=== PATIENT | male | born 1965 | race Caucasian/White ===

== ENCOUNTER → 2016-11-09 | Outpatient (CLI) | payer OTHER | END | disposition home or self-care (01) | LOC: RAD 15:57 | DX: J18.9 Pneumonia, unspecified organism (principal); R00.0 Tachycardia, unspecified; R05 Cough; R06.82 Tachypnea, not elsewhere classified; R09.89 Other specified symptoms and signs involving the circulatory and respiratory systems ==

== ENCOUNTER → 2016-11-10 | Outpatient (CLI) | payer OTHER | END | disposition home or self-care (01) | LOC: RESCLI | DX: Z13.9 Encounter for screening, unspecified (principal); I12.0 Hypertensive chronic kidney disease with stage 5 chronic kidney disease or end stage renal disease; N18.6 End stage renal disease; E11.9 Type 2 diabetes mellitus without complications; E78.5 Hyperlipidemia, unspecified ==

== ENCOUNTER → 2016-11-11 | Outpatient (CLI) | payer OTHER ==
[2016-11-11 11:46] LABS: BASO % 0.2 % (0.0-1.0); EOS # 0.1 10*3/uL (0.0-0.4); EOS % 0.5 % (1.0-4.0); HEMATOCRIT 30.9 % (42.0-52.0); HEMOGLOBIN 10.2 g/dl (14.0-18.0); IG # 0.1 10*3/uL (0.0-0.1); LYMPH # 1.4 10*3/uL (1.3-4.4); LYMPH % 11.2 % (27.0-41.0); MEAN CORPUSCULAR HGB 27.7 pg (27.0-31.0); MONO # 0.7 10*3/uL (0.1-1.0); MONO % 5.1 % (3.0-9.0); NEUT # 10.6 10*3/uL (2.3-7.9); NEUT % 82.6 % (47.0-73.0); PLATELET COUNT AUTOMATED 388 10*3/uL (130-400); RED BLOOD COUNT 3.68 10*6/uL (4.50-5.90); WHITE BLOOD COUNT 12.8 10*3/uL (4.8-10.8)
[2016-11-11 12:03] LABS: HEMOGLOBIN A1c 14.2 % (4.8-5.6)
[2016-11-11 12:08] LABS: ALBUMIN 2.2 gm/dl (3.1-4.5); BILIRUBIN, TOTAL 0.4 mg/dl (0.2-1.0); POTASSIUM 2.9 mmol/L (3.5-5.1); TOTAL PROTEIN 7.5 gm/dL (6.4-8.2)
[2016-11-11 13:00] LABS: FOLIC ACID 8.61 ng/mL (>5.38)
== END | disposition home or self-care (01) ==
LOC: LAB 11:15
PROVIDERS: Student in an Organized Health Care Education/Training Program
DX: Z13.9 Encounter for screening, unspecified (principal)

== ENCOUNTER 2016-11-16 15:13 | Inpatient (IN) | payer OTHER ==
[~2016-11-16] VITALS: Ht 175.3 cm; Wt 94.3 kg
--- NOTE | ~2016-11-16 | EKG ---
[place], [place] ELECTROCARDIOGRAM REPORT NAME: KIZZY GARCIA UNIT #: [id number] ROOM: 532 DOCTOR: ECHO LEBLANC MD BIRTHDATE: [birth year] DOS: 11/16/2016 TIME: 15:59 p.m. Normal sinus rhythm with left atrial enlargement. Nonspecific T-wave abnormality. Abnormal electrocardiogram. ECHO LEBLANC MD CM:EKGRPT:ELECTROCARDIOGRAM REPORT [id number] ECHO LEBLANC MD
--- NOTE | ~2016-11-16 | PR ---
[place], [place] PROGRESS NOTE NAME: KIZZY GARCIA UNIT #: [id number] ROOM: 532 DOCTOR: ECHO LEBLANC MD BIRTHDATE: [birth year] DOS: 11/19/2016 CARDIOLOGY FOLLOWUP NOTE SUBJECTIVE: The patient was seen in the Cardiology Department just prior to his stress test today 11/19/2016. He is feeling better. His blood pressure has come under control. He denies significant lightheadedness. He states that his breathing has improved. He denies any chest pain or palpitations. PHYSICAL EXAMINATION: VITAL SIGNS: Today, his pulse is 76 and regular, blood pressure is 126/76. He weighs 94.3 kg and has a body mass index of 30.7. HEENT: Normocephalic, atraumatic. Extraocular muscles are intact. NECK: Supple. He has no jugular distention. Carotids are full. LUNGS: Respirations are unlabored. His chest is clear. HEART: Has a regular rhythm with an S4 gallop. ABDOMEN: Soft and normoactive. EXTREMITIES: Showed no edema. He does seem to be responding nicely to medical therapy and continues with his dialysis on schedule. For now, I will review the results of his stress test when they are available. Further recommendations will depend upon the results of the stress test. ECHO LEBLANC MD CM:PNTRANS [id number] ECHO LEBLANC MD 11/20/16 0124 interface
--- NOTE | ~2016-11-16 | ST ---
[place], [place] EXERCISE STRESS TEST REPORT NAME: KIZZY GARCIA UNIT #: [id number] ROOM: 532 DOCTOR: ECHO LEBLANC MD BIRTHDATE: [birth year] DOS: 11/19/2016 PHARMACOLOGIC STRESS TEST The patient underwent a pharmacologic stress test on 11/19/2016. PROCEDURE: The patient was given a rapid infusion of regadenoson 0.4 mg intravenously followed by a saline flush. He felt mildly breathless. His resting electrocardiogram showed sinus rhythm with nonspecific ST changes. No further changes occurred with the infusion. The resting heart rate of 76 tamika to 100. The resting blood pressure of 122/82 tamika to 138/90. 40 seconds after the infusion of regadenoson, he was given radionuclide intravenously. IMPRESSION: 1. Well tolerated infusion of regadenoson. 2. Radionuclide administered. Please see the separate imaging report for further details of the patient's stress test results. ECHO LEBLANC MD CM:STRESS:EXERCISE STRESS TEST REPORT [id number] 0120 ECHO LEBLANC MD
[2016-11-16 15:28] VITALS: BP 171/108
[2016-11-16] MEDS ORDERED: PRINIVIL10 MG PO (15:35)
[2016-11-16] MEDS ORDERED: 'CLONIDINE0.1 MG PO (15:35)
[2016-11-16] MEDS ORDERED: ATORVASTATIN CA40 M1 PO (15:35)
[2016-11-16] MEDS ORDERED: METOPROLOL SUCC50 M2 PO (15:35)
[2016-11-16] MEDS ORDERED: SODIUM BICARBO650 MG PO (15:36)
[2016-11-16] MEDS ORDERED: ASPIRIN FOR CHI81 MG PO (15:36)
[2016-11-16 16:14] LABS: BASO % 0.2 % (0.0-1.0); EOS # 0.1 10*3/uL (0.0-0.4); EOS % 0.8 % (1.0-4.0); HEMATOCRIT 27.4 % (42.0-52.0); IG # 0.1 10*3/uL (0.0-0.1); LYMPH # 0.9 10*3/uL (1.3-4.4); LYMPH % 10.2 % (27.0-41.0); MEAN CELL VOLUME 83.5 fl (80.0-94.0); MEAN CORPUSCULAR HGB 27.4 pg (27.0-31.0); MEAN CORPUSCULAR HGB CONC 32.8 g/dl (33.0-37.0); MEAN PLATELET VOLUME 10.3 fl (9.6-12.3); MONO # 0.5 10*3/uL (0.1-1.0); MONO % 5.5 % (3.0-9.0); NEUT # 7.4 10*3/uL (2.3-7.9); NEUT % 82.5 % (47.0-73.0); PLATELET COUNT AUTOMATED 415 10*3/uL (130-400); RED BLOOD COUNT 3.28 10*6/uL (4.50-5.90); RED CELL DISTRI WIDTH 14.2 % (0-14.5)
[2016-11-16 16:24] LABS: INTERNATIONAL NORM RATIO 1.1 (2.0-3.5); PROTHROMBIN TIME 11.4 SECONDS (9.0-12.4)
[2016-11-16 16:30] LABS: ALBUMIN 1.9 gm/dl (3.1-4.5); BILIRUBIN, TOTAL 0.3 mg/dl (0.2-1.0); MAGNESIUM 1.7 mg/dL (1.5-2.1); TOTAL PROTEIN 6.4 gm/dL (6.4-8.2)
[2016-11-16 16:32] LABS: CKMB 1.4 ng/ml (0.5-3.6)
[2016-11-16 16:41] LABS: TROPONIN I 0.19 ng/ml (<0.045)
[2016-11-16 16:42] VITALS: BP 191/106
[2016-11-16 17:00] VITALS: BP 189/100
[2016-11-16 17:21] VITALS: BP 204/103
[2016-11-16 17:45] VITALS: BP 152/90
[2016-11-16] MEDS ORDERED: CLONIDINE HCL0.1 M1 PO (18:29)
[2016-11-16] MEDS ORDERED: PHOSLYRA667 MG/51 PO (18:35)
[2016-11-16 20:00] VITALS: BP 168/102
[2016-11-17] VITALS (7 sets, daily range): BP systolic 132–214; BP diastolic 66–168
[2016-11-17 00:33] LABS: TROPONIN I 0.205 ng/ml (<0.045)
[2016-11-17 06:50] LABS: CKMB 1.2 ng/ml (0.5-3.6)
[2016-11-17 06:51] LABS: TROPONIN I 0.216 ng/ml (<0.045)
[2016-11-17 06:53] LABS: HEMATOCRIT 31.4 % (42.0-52.0); HEMOGLOBIN 9.8 g/dl (14.0-18.0); MEAN CORPUSCULAR HGB 26.8 pg (27.0-31.0); MEAN CORPUSCULAR HGB CONC 31.2 g/dl (33.0-37.0); MEAN PLATELET VOLUME 10.2 fl (9.6-12.3); RED BLOOD COUNT 3.65 10*6/uL (4.50-5.90); RED CELL DISTRI WIDTH 14.2 % (0-14.5); RETICULOCYTE % 2.73 % (0.50-2.50); WHITE BLOOD COUNT 11.9 10*3/uL (4.8-10.8)
[2016-11-17 06:56] LABS: HEMOGLOBIN A1c 14.8 % (4.8-5.6)
[2016-11-17 06:57] LABS: IRF 16.6 % (2.4-13.3); PLATELET COUNT AUTOMATED 544 10*3/uL (130-400); RET-He 27.7 pg (32.1-37.9)
[2016-11-17 07:13] LABS: INTERNATIONAL NORM RATIO 1.1 (2.0-3.5); PROTHROMBIN TIME 11.2 SECONDS (9.0-12.4)
[2016-11-17 07:14] LABS: MAGNESIUM 1.7 mg/dL (1.5-2.1); PHOSPHOROUS 3.9 mg/dL (2.5-4.9)
[2016-11-17 07:23] LABS: BILIRUBIN, TOTAL 0.3 mg/dl (0.2-1.0); THYROID STIM HORMONE (HS) 0.289 uIU/ml (0.358-4.75); TOTAL PROTEIN 7.2 gm/dL (6.4-8.2)
[2016-11-17 07:27] LABS: POTASSIUM 2.9 mmol/L (3.5-5.1)
[2016-11-17 07:33] LABS: FERRITIN 1502.3 ng/mL (22.0-322.0); VITAMIN D, 25-HYDROXY 24.3 ng/mL (30-100)
[2016-11-17 07:34] LABS: FOLIC ACID 6.83 ng/mL (>5.38)
[2016-11-17 07:59] LABS: EOSINOPHIL # 0.1 10*3/uL (0-0.4); EOSINOPHILS 1 % (1-4); LYMPHOCYTE # 2.3 10*3/uL (1.3-4.4); MONOCYTE # 0.8 10*3/uL (0.1-1.0); NEUTROPHIL # 8.7 10*3/uL (2.3-7.9); NEUTROPHILS 73 % (47-73); PLATELET SUFFICIENCY HIGH (NORMAL); TOTAL CELLS COUNTED 100 #CELLS
[2016-11-17 08:00] LABS: POLYCHROMASIA SLIGHT; ROULEAUX SLIGHT
[2016-11-17 08:02] LABS: SCHISTOCYTES FEW
[2016-11-17 12:25] LABS: CKMB 1.5 ng/ml (0.5-3.6)
[2016-11-17 12:31] LABS: TROPONIN I 0.139 ng/ml (<0.045)
[2016-11-18 06:42] LABS: BASO % 0.3 % (0.0-1.0); EOS # 0.1 10*3/uL (0.0-0.4); EOS % 1.2 % (1.0-4.0); IG # 0.1 10*3/uL (0.0-0.1); LYMPH # 1.5 10*3/uL (1.3-4.4); MEAN CELL VOLUME 86.8 fl (80.0-94.0); MEAN CORPUSCULAR HGB 26.9 pg (27.0-31.0); MEAN PLATELET VOLUME 10.1 fl (9.6-12.3); MONO # 0.8 10*3/uL (0.1-1.0); MONO % 7.6 % (3.0-9.0); NEUT # 7.9 10*3/uL (2.3-7.9); NEUT % 75.8 % (47.0-73.0); PLATELET COUNT AUTOMATED 434 10*3/uL (130-400); RED BLOOD COUNT 3.34 10*6/uL (4.50-5.90); RED CELL DISTRI WIDTH 14.4 % (0-14.5); WHITE BLOOD COUNT 10.4 10*3/uL (4.8-10.8)
[2016-11-18 07:08] LABS: ALBUMIN 1.8 gm/dl (3.1-4.5); BILIRUBIN, TOTAL 0.2 mg/dl (0.2-1.0); POTASSIUM 4.1 mmol/L (3.5-5.1); TOTAL PROTEIN 6.4 gm/dL (6.4-8.2)
[2016-11-18 08:00] VITALS: BP 176/100
[2016-11-18 08:30] VITALS: BP 154/80
[2016-11-18 12:00] VITALS: BP 142/98
[2016-11-18 16:00] VITALS: BP 160/92
[2016-11-18 20:17] VITALS: BP 150/82
[2016-11-18 23:30] VITALS: BP 158/80
[2016-11-19 07:12] LABS: BASO % 0.2 % (0.0-1.0); EOS # 0.1 10*3/uL (0.0-0.4); EOS % 0.8 % (1.0-4.0); HEMATOCRIT 30.8 % (42.0-52.0); HEMOGLOBIN 9.7 g/dl (14.0-18.0); IG # 0.2 10*3/uL (0.0-0.1); LYMPH # 1.6 10*3/uL (1.3-4.4); LYMPH % 12.8 % (27.0-41.0); MEAN CELL VOLUME 85.1 fl (80.0-94.0); MEAN CORPUSCULAR HGB 26.8 pg (27.0-31.0); MEAN CORPUSCULAR HGB CONC 31.5 g/dl (33.0-37.0); MEAN PLATELET VOLUME 10.4 fl (9.6-12.3); MONO # 0.9 10*3/uL (0.1-1.0); NEUT # 9.7 10*3/uL (2.3-7.9); NEUT % 77.8 % (47.0-73.0); PLATELET COUNT AUTOMATED 459 10*3/uL (130-400); RED BLOOD COUNT 3.62 10*6/uL (4.50-5.90); RED CELL DISTRI WIDTH 14.5 % (0-14.5); WHITE BLOOD COUNT 12.5 10*3/uL (4.8-10.8)
[2016-11-19 07:44] LABS: BILIRUBIN, TOTAL 0.3 mg/dl (0.2-1.0); POTASSIUM 4.1 mmol/L (3.5-5.1); TOTAL PROTEIN 7.3 gm/dL (6.4-8.2)
[2016-11-19 08:00] VITALS: BP 126/76
[2016-11-19 12:00] VITALS: BP 138/78
[2016-11-19 12:30] VITALS: BP 144/81
[2016-11-19 16:00] VITALS: BP 168/92
[2016-11-19] MEDS ORDERED: HUMALOG100 U/ML SC (17:56)
[2016-11-19] MEDS ORDERED: LEVEMIR10 ML SC (17:56)
[2016-11-19] MEDS ORDERED: METOPROLOL SUC100 M1 PO (17:56)
[2016-11-19] MEDS ORDERED: LISINOPRIL20 MG PO (17:56)
== END 2016-11-19 19:37 | disposition home or self-care (01) | DRG 189 ==
LOC: ED 15:13 → ICCU 17:02 → EDHOLD 17:02 → ICCU 17:14 → 5E 11-17 14:44
PROVIDERS: Internal Medicine; Internal Medicine Hospice and Palliative Medicine; Registered Nurse
PROC: 5A1D00Z (ICD-10-PCS; principal; 2016-11-18)
DX: J96.01 Acute respiratory failure with hypoxia (principal); E11.00 Type 2 diabetes mellitus with hyperosmolarity without nonketotic hyperglycemic-hyperosmolar coma (NKHHC); E43 Unspecified severe protein-calorie malnutrition; N18.6 End stage renal disease; I16.1 Hypertensive emergency; E87.1 Hypo-osmolality and hyponatremia; J90 Pleural effusion, not elsewhere classified; I13.11 Hypertensive heart and chronic kidney disease without heart failure, with stage 5 chronic kidney disease, or end stage renal disease; E11.22 Type 2 diabetes mellitus with diabetic chronic kidney disease; E55.9 Vitamin D deficiency, unspecified; E78.00 Pure hypercholesterolemia, unspecified; D47.3 Essential (hemorrhagic) thrombocythemia; D64.9 Anemia, unspecified; Z87.891 Personal history of nicotine dependence; Z68.30 Body mass index [BMI] 30.0-30.9, adult; Z79.4 Long term (current) use of insulin; Z79.82 Long term (current) use of aspirin; Z79.899 Other long term (current) drug therapy; Z99.2 Dependence on renal dialysis; Z82.49 Family history of ischemic heart disease and other diseases of the circulatory system; Z80.0 Family history of malignant neoplasm of digestive organs

== ENCOUNTER 2016-11-22 22:03 | Inpatient (IN) | payer OTHER ==
[~2016-11-22] VITALS: Ht 175.2 cm; Wt 94.1 kg
--- NOTE | ~2016-11-22 | CON ---
[place], [place] REPORT OF CONSULTATION NAME: KIZZY GARCIA UNIT #: [id number] ROOM: 505 DOCTOR: BRYAN OLMEDO MD,RONNELL BIRTHDATE: [birth year] DOS: 11/25/2016 PULMONARY CONSULTATION The patient was asked for consultation for assessment of the current empyema of the right side. The patient was discharged prior to the assessment. RONNELL ADAMS MD CM:CONSTR:REPORT OF CONSULTATION 1301 11/27/16 0516 interface
--- NOTE | ~2016-11-22 | PR ---
[place], [place] PROGRESS NOTE NAME: KIZZY GARCIA UNIT #: [id number] ROOM: 505 DOCTOR: VALDEZ LAMB MD BIRTHDATE: [birth year] DOS: 11/24/2016 CARDIOLOGY PROGRESS NOTE REASON FOR VISIT: Elevated cardiac enzymes. HISTORY OF PRESENT ILLNESS: The patient is feeling better. Denies any chest pain. He had a chest tube inserted for his pneumonia. Still some shortness of breath when he takes a deep breath and also mildly short of breath. No palpitations, no orthopnea, no dizziness. No fever or chills. REVIEW OF SYSTEMS: Review of the 8 systems were negative except as mentioned above. PHYSICAL EXAMINATION: VITAL SIGNS: Blood pressure is 128/80, pulse 89, respiratory rate is 18. GENERAL: Alert, comfortable, in no acute distress. HEENT: Pupils are round. No jaundice. Tongue is moist. NECK: Supple, no distended neck veins. No carotid bruit. CHEST: Nontender anteriorly. LUNGS: Diminished at the right base, left base has few scattered rhonchi. The patient has a chest tube on the right side. HEART: Regular rhythm, no S3. ABDOMEN: Bowel sounds normal. EXTREMITIES: Showed no edema. Distal pulses are palpable. SKIN: Warm and dry. No cyanosis, no clubbing. NEUROLOGIC: The patient is alert and oriented. No focal neurologic deficits. IMPRESSION: 1. Borderline elevation of troponin due to end-stage renal disease. 2. Pneumonia. 3. End-stage renal disease, on hemodialysis. RECOMMENDATIONS: 1. Continue current medication. 2. No further cardiac testing. 3. His stress test echo from 11/2016 was reviewed. 5. Cardiology will sign off and see as needed. The above treatment and plan was discussed with the patient and his , and all of his questions were answered. [place], [place] PROGRESS NOTE NAME: KIZZY GARCIA UNIT #: [id number] ROOM: 505 DOCTOR: VALDEZ LAMB MD BIRTHDATE: [birth year] VALDEZ LAMB MD CM:PNTRANS [id number] VALDEZ LAMB MD 11/25/16 0451 interface
--- NOTE | ~2016-11-22 | CON ---
[place], [place] REPORT OF CONSULTATION NAME: KIZZY GARCIA UNIT #: [id number] ROOM: 505 DOCTOR: VALDEZ LAMB MD BIRTHDATE: [birth year] DOS: 11/23/2016 CARDIOLOGY CONSULT REASON FOR CONSULT: Atypical chest pain and elevated troponin. HISTORY: The patient is a 51-year-old gentleman came to the Emergency Room with right flank pain. He was discharged recently from the hospital on where he did present with similar symptoms. He had this constant right flank pain, which intermittently gets worse, but this is a stabbing pain, which has been there for the past 3 weeks. He also has some cough, but no fever, no hemoptysis. He denies any chest pain, palpitations, or dizziness. No edema, no orthopnea, no nausea, vomiting, or diarrhea. No PND. No hematuria or dysuria. He did have a stress test during his last admission. REVIEW OF SYSTEMS: Review of the 8-system negative except as mentioned above. PAST MEDICAL HISTORY: 1. Hypertension. 2. End-stage renal disease, on hemodialysis. 3. Dyslipidemia. 4. Anemia. 5. Type 2 diabetes. 6. Vitamin D deficiency. 7. Obesity. 8. History of pneumonia. PAST SURGICAL HISTORY: 1. History of AV fistula for dialysis. 2. Inguinal hernia repair. SOCIAL HISTORY: The patient does not drink or use illicit drugs, does not smoke cigarettes. FAMILY HISTORY: Father at the age 77 from colon cancer and mother at the age 60s from myocardial infarction. ALLERGIES: No known drug allergies. HOME MEDICATIONS: Reviewed. PHYSICAL EXAMINATION: VITAL SIGNS: Blood pressure 120/75, pulse 71, respirations 18. Weight 94.8 kilos. BMI 30.9. GENERAL: Alert, comfortable, in no acute distress. HEENT: Pupils are round and equal. No jaundice. Tongue was moist and pharynx was clear. NECK: Supple, no distended neck veins, no carotid bruit. CHEST: Symmetrical, nontender. LUNGS: Clear to auscultation bilaterally. [place], [place] REPORT OF CONSULTATION NAME: KIZZY GARCIA UNIT #: [id number] ROOM: 505 DOCTOR: VALDEZ LAMB MD BIRTHDATE: [birth year] HEART: Regular rhythm, no S3, grade 1/6 systolic murmur. ABDOMEN: Benign, nontender. Bowel sounds normal. EXTREMITIES: Showed trace edema. Distal pulses are palpable. SKIN: Warm and dry. No cyanosis, no clubbing. NEUROLOGIC: The patient is alert, oriented. No focal neurologic deficit. RECTAL: Deferred. GENITOURINARY: Deferred. REVIEW OF THE DIAGNOSTIC TESTS: EKG shows sinus tachycardia. His initial white cell count was 23,000. Chest x-ray showed right-sided pneumonia. CBC, chemistry and cardiac enzymes reviewed. IMPRESSION: 1. Right flank pain with atypical chest pain. 2. Borderline elevation in troponin due to chronic kidney disease. 3. Pneumonia. 4. Hypertension. 5. Anemia. 6. End-stage renal disease, on dialysis. 7. Respiratory distress and hypoxemia, currently better. 8. Hyperkalemia. RECOMMENDATIONS: He denies any chest pain. EKG showed no acute ischemic changes. His CK-MB unremarkable except for borderline elevation in troponin, which is due to his chronic kidney disease and also, he had a recent stress test. Continue current medications. If he did not have one, I have to recommend getting a 2D echo for his LV function and valvular function. Continue rest of his medications. Thank you, Dr. Hidalgo for asking us to evaluate this gentleman. We will follow the case along with you. Above treatment was discussed with the patient and his and all questions were answered. [place], [place] REPORT OF CONSULTATION NAME: KIZZY GARCIA UNIT #: [id number] ROOM: [facility] DOCTOR: VALDEZ LAMB MD BIRTHDATE: [birth year] VALDEZ LAMB MD CM:CONSTR:REPORT OF CONSULTATION 44 11/24/162038 interface
--- NOTE | ~2016-11-22 | PROC NOTE ---
[place], [place] PROCEDURE NOTE NAME: KIZZY GARCIA UNIT #: [id number] ROOM: 505 DOCTOR: SAMANTHA REED BIRTHDATE: [birth year] DOS: 11/23/2016 MODIFIED BARIUM SWALLOW LOCATION: [facility], room 505, bed 2. DOCTOR: Dr. Hidalgo. RADIOLOGIST: Dr. Kelley. BACKGROUND INFORMATION: The patient is a 51-year-old male who was seen for a modified barium swallow. This test was ordered to rule out aspiration. This patient was admitted with complaints of right flank pain. He was recently discharged from this hospital last week with similar symptoms. Diagnoses include right lung pneumonia, sepsis, leukocytosis, elevated troponin, acute respiratory distress, HTN, IDDM, and end-stage renal failure with dialysis Wednesday, Wednesday, and Wednesday. The patient currently receives a renal diet. He reports no current difficulty with chewing or swallowing. For today's assessment, he was alert and able to follow all commands. He was currently having right flank pain, respirations were shallow and rapid. Oral peripheral examination revealed presence of natural teeth, which were in good condition. Oral motor skills were within normal limits in terms of strength, range of motion, and coordination. The patient was able to volitionally swallow. Volitional cough was weak due to his flank pain. METHODS AND MATERIALS USED FOR THE EXAM: The patient was positioned in the lateral plane and the exam was viewed under fluoroscopy. The patient was presented with a variety of consistencies to assess swallowing skills including applesauce mixed with barium presented in half teaspoon amounts, barium-coated cookie presented in bite size piece and thin liquid barium taken by patient via cup and straw. ORAL PHASE: Unremarkable. PHARYNGEAL PHASE: Unremarkable. ESOPHAGEAL PHASE: This phase of the swallow was not formally assessed during this examination. IMPRESSIONS AND RECOMMENDATIONS: Based upon assessment results, this 51-year-old patient presents with swallowing skills that are within normal limits. Recommend he remain on present diet. No followup therapy is recommended. Results and recommendations were shared with the patient and his nurse and they verbalized understanding. Thank you very much for this referral. Should you have any questions regarding this patient, please contact the speech pathologist at [phone]. [place], [place] PROCEDURE NOTE NAME: KIZZY GARCIA UNIT #: [id number] ROOM: [facility] DOCTOR: SAMANTHA REED BIRTHDATE: [birth year] SAMANTHA REED CM:PROCNOTE:PROCEDURE NOTE 0952 1202 SAMANTHA REED
[~2016-11-22 22:03] MED LIST: 'CLONIDINE0.1 MG PO; ASPIRIN FOR CHI81 MG PO; ATORVASTATIN CA40 M1 PO; CLONIDINE HCL0.1 M1 PO; HUMALOG100 U/ML SC; LEVEMIR10 ML SC; LISINOPRIL20 MG PO; METOPROLOL SUC100 M1 PO; METOPROLOL SUCC50 M2 PO; PHOSLYRA667 MG/51 PO; PRINIVIL10 MG PO; SODIUM BICARBO650 MG PO
[2016-11-22 22:15] VITALS: BP 147/95
[2016-11-22 22:37] LABS: HEMATOCRIT 32.2 % (42.0-52.0); HEMOGLOBIN 10.2 g/dl (14.0-18.0); MEAN CORPUSCULAR HGB 26.9 pg (27.0-31.0); MEAN CORPUSCULAR HGB CONC 31.7 g/dl (33.0-37.0); MEAN PLATELET VOLUME 10.7 fl (9.6-12.3); PLATELET COUNT AUTOMATED 518 10*3/uL (130-400); RED BLOOD COUNT 3.79 10*6/uL (4.50-5.90); WHITE BLOOD COUNT 23.7 10*3/uL (4.8-10.8)
[2016-11-22 22:47] LABS: INTERNATIONAL NORM RATIO 1.1 (2.0-3.5); PROTHROMBIN TIME 11.6 SECONDS (9.0-12.4)
[2016-11-22 22:53] LABS: BILIRUBIN, TOTAL 0.2 mg/dl (0.2-1.0); MAGNESIUM 1.7 mg/dL (1.5-2.1); TOTAL PROTEIN 7.6 gm/dL (6.4-8.2)
[2016-11-22 22:54] LABS: LYMPHOCYTE # 0.7 10*3/uL (1.3-4.4); MONOCYTE # 0.2 10*3/uL (0.1-1.0); NEUTROPHIL # 22.8 10*3/uL (2.3-7.9); NEUTROPHILS 96 % (47-73); PLATELET SUFFICIENCY HIGH (NORMAL); TOTAL CELLS COUNTED 100 #CELLS
[2016-11-22 22:57] LABS: TROPONIN I 0.074 ng/ml (<0.045)
[2016-11-22 23:44] VITALS: BP 148/76
[2016-11-23] VITALS: BP 131/88
[2016-11-23 06:48] LABS: CKMB 2.2 ng/ml (0.5-3.6)
[2016-11-23 06:51] LABS: TROPONIN I 0.284 ng/ml (<0.045)
[2016-11-23 08:00] VITALS: BP 113/73
[2016-11-23 12:00] VITALS: BP 126/75
[2016-11-23 12:06] LABS: CKMB 2.4 ng/ml (0.5-3.6)
[2016-11-23 12:10] LABS: TROPONIN I 0.224 ng/ml (<0.045)
[2016-11-23 16:00] VITALS: BP 128/69
[2016-11-23 18:18] LABS: CKMB 1.9 ng/ml (0.5-3.6)
[2016-11-23 18:23] LABS: TROPONIN I 0.165 ng/ml (<0.045)
[2016-11-23 20:00] VITALS: BP 154/82
[2016-11-23 23:48] LABS: BILIRUBIN NEGATIVE (NEGATIVE); BLOOD 1+ (NEGATIVE); CLARITY CLEAR (CLEAR); COLOR YELLOW (YELLOW); GLUCOSE 3+ (NEGATIVE); KETONE NEGATIVE (NEGATIVE); LEUKO ESTERASE NEGATIVE (NEGATIVE); NITRITE NEGATIVE (NEGATIVE); PH 7.5 (5.0-9.0); PROTEIN 3+ (NEGATIVE); SPECIFIC GRAVITY 1.015 (1.005-1.030); UROBILINOGEN 0.2 E.U./dl (0.2-1.0)
[2016-11-24] VITALS: BP 117/65
[2016-11-24 00:35] LABS: WBC 0-2 wbc/hpf (0-5)
[2016-11-24 06:34] LABS: BASO % 0.3 % (0.0-1.0); EOS # 0.1 10*3/uL (0.0-0.4); EOS % 0.5 % (1.0-4.0); HEMATOCRIT 28.8 % (42.0-52.0); HEMOGLOBIN 8.9 g/dl (14.0-18.0); IG # 0.1 10*3/uL (0.0-0.1); LYMPH # 1.4 10*3/uL (1.3-4.4); LYMPH % 9.9 % (27.0-41.0); MEAN CELL VOLUME 85.7 fl (80.0-94.0); MEAN CORPUSCULAR HGB 26.5 pg (27.0-31.0); MEAN CORPUSCULAR HGB CONC 30.9 g/dl (33.0-37.0); MEAN PLATELET VOLUME 11.1 fl (9.6-12.3); MONO # 0.9 10*3/uL (0.1-1.0); MONO % 6.3 % (3.0-9.0); NEUT # 11.4 10*3/uL (2.3-7.9); NEUT % 82.2 % (47.0-73.0); PLATELET COUNT AUTOMATED 387 10*3/uL (130-400); RED BLOOD COUNT 3.36 10*6/uL (4.50-5.90); RED CELL DISTRI WIDTH 14.9 % (0-14.5); WHITE BLOOD COUNT 13.9 10*3/uL (4.8-10.8)
[2016-11-24 06:48] LABS: ALBUMIN 1.8 gm/dl (3.1-4.5); BILIRUBIN, TOTAL 0.3 mg/dl (0.2-1.0); MAGNESIUM 1.7 mg/dL (1.5-2.1); PHOSPHOROUS 5.1 mg/dL (2.5-4.9); TOTAL PROTEIN 6.8 gm/dL (6.4-8.2)
[2016-11-24 06:54] LABS: POTASSIUM 4.6 mmol/L (3.5-5.1)
[2016-11-24 08:00] VITALS: BP 143/68
[2016-11-24 10:25] VITALS: BP 128/69
[2016-11-24 10:57] LABS: BODY FLUID CHOLESTEROL < 50 mg/dl; BODY FLUID PROTEIN 3.2 g/dl; BODY FLUID TRIGLYCERIDE 46 mg/dl
[2016-11-24 12:00] VITALS: BP 132/78
[2016-11-24 16:00] VITALS: BP 120/60
[2016-11-24 20:00] VITALS: BP 143/68
[2016-11-25] VITALS: BP 138/71
[2016-11-25 07:36] LABS: BASO % 0.4 % (0.0-1.0); EOS # 0.2 10*3/uL (0.0-0.4); EOS % 2.2 % (1.0-4.0); HEMATOCRIT 29.5 % (42.0-52.0); HEMOGLOBIN 9.1 g/dl (14.0-18.0); IG # 0.1 10*3/uL (0.0-0.1); LYMPH # 1.6 10*3/uL (1.3-4.4); LYMPH % 15.2 % (27.0-41.0); MEAN CELL VOLUME 87.3 fl (80.0-94.0); MEAN CORPUSCULAR HGB 26.9 pg (27.0-31.0); MEAN CORPUSCULAR HGB CONC 30.8 g/dl (33.0-37.0); MEAN PLATELET VOLUME 10.4 fl (9.6-12.3); MONO # 0.7 10*3/uL (0.1-1.0); MONO % 6.4 % (3.0-9.0); NEUT # 8.1 10*3/uL (2.3-7.9); PLATELET COUNT AUTOMATED 387 10*3/uL (130-400); RED BLOOD COUNT 3.38 10*6/uL (4.50-5.90); RED CELL DISTRI WIDTH 15.1 % (0-14.5); WHITE BLOOD COUNT 10.8 10*3/uL (4.8-10.8)
[2016-11-25 08:00] VITALS: BP 122/64
[2016-11-25 08:10] LABS: ALBUMIN 1.7 gm/dl (3.1-4.5); BILIRUBIN, TOTAL 0.4 mg/dl (0.2-1.0); POTASSIUM 4.3 mmol/L (3.5-5.1)
[2016-11-25 12:00] VITALS: BP 122/56
[2016-11-25 16:00] VITALS: BP 105/52
[2016-11-26 08:12] LABS: HIV 1+2 AB + HIV1 P24 AG Non Reactive (Non Reactive)
== END 2016-11-25 17:12 | disposition short-term general hospital (02) | DRG 871 ==
LOC: ED 22:03 → EDHOLD 23:16 → 5E 23:16
PROVIDERS: Emergency Medicine; Internal Medicine; Internal Medicine Hospice and Palliative Medicine; Internal Medicine Infectious Disease; Radiology Diagnostic Radiology
PROC: 5A1D00Z (ICD-10-PCS; principal; 2016-11-23)
PROC: 0W9930Z Drainage of Right Pleural Cavity with Drainage Device, Percutaneous Approach (ICD-10-PCS; 2016-11-23)
PROC: BD1BYZZ Fluoroscopy of Mouth/Oropharynx using Other Contrast (ICD-10-PCS; 2016-11-23)
DX: A41.9 Sepsis, unspecified organism (principal); E43 Unspecified severe protein-calorie malnutrition; J85.1 Abscess of lung with pneumonia; N18.6 End stage renal disease; J80 Acute respiratory distress syndrome; I12.0 Hypertensive chronic kidney disease with stage 5 chronic kidney disease or end stage renal disease; E87.5 Hyperkalemia; E78.00 Pure hypercholesterolemia, unspecified; D64.9 Anemia, unspecified; E55.9 Vitamin D deficiency, unspecified; E11.65 Type 2 diabetes mellitus with hyperglycemia; E11.22 Type 2 diabetes mellitus with diabetic chronic kidney disease; Z80.0 Family history of malignant neoplasm of digestive organs; Z82.49 Family history of ischemic heart disease and other diseases of the circulatory system; Z79.82 Long term (current) use of aspirin; Z79.4 Long term (current) use of insulin; Z79.899 Other long term (current) drug therapy; Z87.891 Personal history of nicotine dependence; Z68.30 Body mass index [BMI] 30.0-30.9, adult

== ENCOUNTER → 2016-12-22 | Outpatient (CLI) | payer OTHER | END | disposition home or self-care (01) | LOC: RAD 12:45 | DX: J98.11 Atelectasis (principal); J90 Pleural effusion, not elsewhere classified; J18.9 Pneumonia, unspecified organism; J86.9 Pyothorax without fistula; E11.9 Type 2 diabetes mellitus without complications; I10 Essential (primary) hypertension ==

== ENCOUNTER 2017-01-07 09:21 | Emergency (ER) | payer OTHER ==
[~2017-01-07] VITALS: Ht 172.7 cm; Wt 6.0 kg
[2017-01-07] MEDS ORDERED: RENVELA800 MG PO (09:31)
[2017-01-07] MEDS ORDERED: LEVEMIR10 ML SC (09:32)
[2017-01-07] MEDS ORDERED: PRINIVIL10 MG PO (09:33)
[2017-01-07] MEDS ORDERED: LEVOFLOXACIN500 MG PO (09:34)
[2017-01-07 10:16] LABS: BASO % 0.4 % (0.0-1.0); EOS # 0.2 10*3/uL (0.0-0.4); EOS % 2.7 % (1.0-4.0); HEMATOCRIT 32.2 % (42.0-52.0); HEMOGLOBIN 10.2 g/dl (14.0-18.0); LYMPH # 1.4 10*3/uL (1.3-4.4); LYMPH % 18.9 % (27.0-41.0); MEAN CELL VOLUME 90.4 fl (80.0-94.0); MEAN CORPUSCULAR HGB 28.7 pg (27.0-31.0); MEAN CORPUSCULAR HGB CONC 31.7 g/dl (33.0-37.0); MEAN PLATELET VOLUME 10.8 fl (9.6-12.3); MONO # 0.8 10*3/uL (0.1-1.0); MONO % 10.3 % (3.0-9.0); NEUT # 5.1 10*3/uL (2.3-7.9); NEUT % 67.4 % (47.0-73.0); PLATELET COUNT AUTOMATED 240 10*3/uL (130-400); RED BLOOD COUNT 3.56 10*6/uL (4.50-5.90); RED CELL DISTRI WIDTH 18.5 % (0-14.5); WHITE BLOOD COUNT 7.5 10*3/uL (4.8-10.8)
[2017-01-07 10:30] LABS: ALBUMIN 2.9 gm/dl (3.1-4.5); BILIRUBIN, TOTAL 0.5 mg/dl (0.2-1.0); POTASSIUM 5.2 mmol/L (3.5-5.1); TOTAL PROTEIN 7.6 gm/dL (6.4-8.2); URIC ACID 4.9 mg/dL (3.5-7.2)
[2017-01-07] MEDS ORDERED: HYDROCODON-ACE1 EACH PO (11:19)
== END 2017-01-07 11:29 | disposition home or self-care (01) ==
LOC: ED 09:21
PROVIDERS: Nurse Practitioner Family
DX: M79.661 Pain in right lower leg (principal); I12.0 Hypertensive chronic kidney disease with stage 5 chronic kidney disease or end stage renal disease; E11.22 Type 2 diabetes mellitus with diabetic chronic kidney disease; N18.6 End stage renal disease; Z79.4 Long term (current) use of insulin; Z79.82 Long term (current) use of aspirin; Z79.899 Other long term (current) drug therapy; Z87.891 Personal history of nicotine dependence

== ENCOUNTER 2017-01-18 06:15 | Inpatient (IN) | payer OTHER ==
[~2017-01-18] VITALS: Ht 172.7 cm; Wt 88.0 kg
[2017-01-18] VITALS (13 sets, daily range): BP systolic 118–194; BP diastolic 59–110
[~2017-01-18 06:15] MED LIST changes: +HYDROCODON-ACE1 EACH PO; +LEVOFLOXACIN500 MG PO; +RENVELA800 MG PO
[2017-01-18 06:44] LABS: BASO # 0.1 10*3/uL (0.0-0.1); BASO % 0.4 % (0.0-1.0); EOS # 0.2 10*3/uL (0.0-0.4); EOS % 1.6 % (1.0-4.0); HEMATOCRIT 32.8 % (42.0-52.0); HEMOGLOBIN 10.7 g/dl (14.0-18.0); IG # 0.1 10*3/uL (0.0-0.1); LYMPH # 2.3 10*3/uL (1.3-4.4); MEAN CELL VOLUME 89.6 fl (80.0-94.0); MEAN CORPUSCULAR HGB 29.2 pg (27.0-31.0); MEAN CORPUSCULAR HGB CONC 32.6 g/dl (33.0-37.0); MEAN PLATELET VOLUME 10.5 fl (9.6-12.3); MONO # 0.8 10*3/uL (0.1-1.0); MONO % 5.5 % (3.0-9.0); NEUT # 11.1 10*3/uL (2.3-7.9); NEUT % 75.9 % (47.0-73.0); PLATELET COUNT AUTOMATED 366 10*3/uL (130-400); RED BLOOD COUNT 3.66 10*6/uL (4.50-5.90); RED CELL DISTRI WIDTH 17.9 % (0-14.5); WHITE BLOOD COUNT 14.6 10*3/uL (4.8-10.8)
[2017-01-18 07:00] LABS: ALBUMIN 3.2 gm/dl (3.1-4.5); BILIRUBIN, TOTAL 0.5 mg/dl (0.2-1.0); MAGNESIUM 1.8 mg/dL (1.5-2.1); POTASSIUM 5.4 mmol/L (3.5-5.1); TOTAL PROTEIN 7.6 gm/dL (6.4-8.2)
[2017-01-18 07:06] LABS: TROPONIN I 1.47 ng/ml (<0.045)
[2017-01-18 11:44] LABS: CKMB 2.6 ng/ml (0.5-3.6)
[2017-01-18] MEDS ORDERED: VANCO 1 GR1 GM/250 M IV (14:38)
[2017-01-18] MEDS ORDERED: HEPARIN NS IV (14:38)
[2017-01-18] MEDS ORDERED: CLOPIDOGREL75 MG PO (14:38)
[2017-01-18] MEDS ORDERED: ZOSYN 3 GM-0.371 PD1 IV (14:38)
[2017-01-18] MEDS ORDERED: LEVOFLOXAC750 MG/150 IV (14:38)
[2017-01-18] MEDS ORDERED: [UNRECOGNIZED DRUG - OTHER] IV (14:38)
[2017-01-18 18:33] LABS: CKMB 2.1 ng/ml (0.5-3.6)
[2017-01-19] VITALS: BP 136/74
[2017-01-19 00:25] LABS: CKMB 1.4 ng/ml (0.5-3.6)
[2017-01-19 04:00] VITALS: BP 150/72
== END 2017-01-19 04:44 | disposition short-term general hospital (02) | DRG 280 ==
LOC: ED 06:15 → EDHOLD 08:07 → ICCU 08:07
PROVIDERS: Emergency Medicine Emergency Medical Services; Internal Medicine
PROC: 5A09357 Assistance with Respiratory Ventilation, Less than 24 Consecutive Hours, Continuous Positive Airway Pressure (ICD-10-PCS; principal; 2017-01-18)
PROC: 5A1D00Z (ICD-10-PCS; 2017-01-18)
DX: I21.4 Non-ST elevation (NSTEMI) myocardial infarction (principal); J96.01 Acute respiratory failure with hypoxia; I13.2 Hypertensive heart and chronic kidney disease with heart failure and with stage 5 chronic kidney disease, or end stage renal disease; N18.6 End stage renal disease; I16.1 Hypertensive emergency; I50.9 Heart failure, unspecified; D72.829 Elevated white blood cell count, unspecified; E87.6 Hypokalemia; E11.65 Type 2 diabetes mellitus with hyperglycemia; E78.00 Pure hypercholesterolemia, unspecified; E11.22 Type 2 diabetes mellitus with diabetic chronic kidney disease; Z99.2 Dependence on renal dialysis; Z72.89 Other problems related to lifestyle; Z80.0 Family history of malignant neoplasm of digestive organs; Z82.49 Family history of ischemic heart disease and other diseases of the circulatory system; Z87.891 Personal history of nicotine dependence; Z90.2 Acquired absence of lung [part of]; Z79.82 Long term (current) use of aspirin; Z79.4 Long term (current) use of insulin; Z79.899 Other long term (current) drug therapy; Z87.01 Personal history of pneumonia (recurrent)

== ENCOUNTER 2017-04-08 10:26 | Emergency (ER) | payer OTHER ==
[~2017-04-08] VITALS: Ht 172.7 cm; Wt 90.7 kg
[~2017-04-08 10:26] MED LIST changes: +CLOPIDOGREL75 MG PO; +HEPARIN NS IV; +LEVOFLOXAC750 MG/150 IV; +VANCO 1 GR1 GM/250 M IV; +ZOSYN 3 GM-0.371 PD1 IV; +[UNRECOGNIZED DRUG - OTHER] IV
[2017-04-08 10:58] LABS: BASO # 0.1 10*3/uL (0.0-0.1); BASO % 0.6 % (0.0-1.0); EOS # 0.1 10*3/uL (0.0-0.4); EOS % 1.3 % (1.0-4.0); HEMATOCRIT 33.5 % (42.0-52.0); HEMOGLOBIN 11.5 g/dl (14.0-18.0); LYMPH # 1.6 10*3/uL (1.3-4.4); MEAN CELL VOLUME 87.9 fl (80.0-94.0); MEAN CORPUSCULAR HGB 30.2 pg (27.0-31.0); MEAN CORPUSCULAR HGB CONC 34.3 g/dl (33.0-37.0); MEAN PLATELET VOLUME 10.2 fl (9.6-12.3); MONO # 0.5 10*3/uL (0.1-1.0); MONO % 6.1 % (3.0-9.0); NEUT # 6.1 10*3/uL (2.3-7.9); NEUT % 72.8 % (47.0-73.0); PLATELET COUNT AUTOMATED 240 10*3/uL (130-400); RED BLOOD COUNT 3.81 10*6/uL (4.50-5.90); RED CELL DISTRI WIDTH 14.4 % (0-14.5); WHITE BLOOD COUNT 8.4 10*3/uL (4.8-10.8)
[2017-04-08 11:09] LABS: ACT PARTIAL THROMBO TIME 20.7 SECONDS (20.8-31.5); INTERNATIONAL NORM RATIO 1.1 (2.0-3.5)
[2017-04-08 11:15] LABS: ALBUMIN 3.5 gm/dl (3.1-4.5); CREATININE 6.9 mg/dL (0.70-1.30); POTASSIUM 4.1 mmol/L (3.5-5.1); TOTAL PROTEIN 7.9 gm/dL (6.4-8.2)
[2017-04-08 11:22] LABS: TROPONIN I 0.58 ng/ml (<0.045)
== END 2017-04-08 15:14 | disposition left against medical advice (07) ==
LOC: ED 10:26
PROVIDERS: Family Medicine Adult Medicine
DX: R07.89 Other chest pain (principal); R05 Cough; M54.6 Pain in thoracic spine; E78.00 Pure hypercholesterolemia, unspecified; E11.22 Type 2 diabetes mellitus with diabetic chronic kidney disease; I12.0 Hypertensive chronic kidney disease with stage 5 chronic kidney disease or end stage renal disease; N18.6 End stage renal disease; Z99.2 Dependence on renal dialysis; Z79.82 Long term (current) use of aspirin; Z79.899 Other long term (current) drug therapy; Z79.4 Long term (current) use of insulin; Z87.891 Personal history of nicotine dependence

== ENCOUNTER 2017-06-08 10:02 | Emergency (ER) | payer OTHER ==
[~2017-06-08] VITALS: Ht 172.7 cm; Wt 90.7 kg
[2017-06-08] MEDS ORDERED: CEPHALEXIN500 M1 PO (12:50)
== END 2017-06-08 13:32 | disposition home or self-care (01) ==
LOC: ED 10:02
DX: J01.90 Acute sinusitis, unspecified (principal); F17.200 Nicotine dependence, unspecified, uncomplicated; Z79.82 Long term (current) use of aspirin

== ENCOUNTER 2017-07-25 13:14 | Inpatient (IN) | payer OTHER ==
[2017-07-25] VITALS (7 sets, daily range): BP systolic 100–145; BP diastolic 59–89
[~2017-07-25] VITALS: Ht 177.8 cm; Wt 94.5 kg
[~2017-07-25 13:14] MED LIST changes: +CEPHALEXIN500 M1 PO; +LEVEMIR100 UNIT/1 SQ
[2017-07-25 13:45] LABS: BASO # 0.1 10*3/uL (0.0-0.1); BASO % 0.5 % (0.0-1.0); EOS # 0.2 10*3/uL (0.0-0.4); EOS % 1.5 % (1.0-4.0); HEMOGLOBIN 12.2 g/dl (14.0-18.0); LYMPH # 2.3 10*3/uL (1.3-4.4); LYMPH % 18.9 % (27.0-41.0); MEAN CELL VOLUME 91.1 fl (80.0-94.0); MEAN CORPUSCULAR HGB 30.9 pg (27.0-31.0); MEAN CORPUSCULAR HGB CONC 33.9 g/dl (33.0-37.0); MEAN PLATELET VOLUME 9.9 fl (9.6-12.3); MONO # 0.8 10*3/uL (0.1-1.0); MONO % 6.7 % (3.0-9.0); NEUT # 8.7 10*3/uL (2.3-7.9); NEUT % 72.2 % (47.0-73.0); PLATELET COUNT AUTOMATED 283 10*3/uL (130-400); RED BLOOD COUNT 3.95 10*6/uL (4.50-5.90); RED CELL DISTRI WIDTH 14.3 % (0-14.5); WHITE BLOOD COUNT 12.1 10*3/uL (4.8-10.8)
[2017-07-25 14:01] LABS: ALBUMIN 3.7 gm/dl (3.1-4.5); CREATININE 10.3 mg/dL (0.70-1.30); PHOSPHOROUS 5.1 mg/dL (2.5-4.9); POTASSIUM 5.7 mmol/L (3.5-5.1); TOTAL PROTEIN 8.2 gm/dL (6.4-8.2)
[2017-07-25] MEDS ORDERED: NORVASC5 MG PO (15:48)
[2017-07-25] MEDS ORDERED: ISOSORBIDE MON120 MG PO (16:18)
[2017-07-25] MEDS ORDERED: TOPROL XL50 M1 PO (16:21)
[2017-07-25] MEDS ORDERED: BUMETANIDE2 MG PO (16:23)
[2017-07-25 16:51] LABS: CREATININE 10.6 mg/dL (0.70-1.30)
[2017-07-25 16:58] LABS: POTASSIUM 4.1 mmol/L (3.5-5.1)
[2017-07-25 20:31] LABS: CREATININE 10.7 mg/dL (0.70-1.30); POTASSIUM 4.1 mmol/L (3.5-5.1)
[2017-07-26] VITALS: BP 112/50
[2017-07-26 06:56] LABS: BASO # 0.1 10*3/uL (0.0-0.1); BASO % 0.5 % (0.0-1.0); EOS # 0.2 10*3/uL (0.0-0.4); EOS % 2.1 % (1.0-4.0); HEMATOCRIT 35.2 % (42.0-52.0); HEMOGLOBIN 11.8 g/dl (14.0-18.0); LYMPH # 1.6 10*3/uL (1.3-4.4); LYMPH % 15.9 % (27.0-41.0); MEAN CORPUSCULAR HGB 30.5 pg (27.0-31.0); MEAN CORPUSCULAR HGB CONC 33.5 g/dl (33.0-37.0); MONO # 0.6 10*3/uL (0.1-1.0); MONO % 5.9 % (3.0-9.0); NEUT # 7.6 10*3/uL (2.3-7.9); NEUT % 75.2 % (47.0-73.0); PLATELET COUNT AUTOMATED 253 10*3/uL (130-400); RED BLOOD COUNT 3.87 10*6/uL (4.50-5.90); RED CELL DISTRI WIDTH 14.1 % (0-14.5); WHITE BLOOD COUNT 10.1 10*3/uL (4.8-10.8)
[2017-07-26 07:28] LABS: ALBUMIN 3.5 gm/dl (3.1-4.5); CREATININE 11.4 mg/dL (0.70-1.30); FREE T4 0.97 ng/dl (0.76-1.46); PHOSPHOROUS 5.7 mg/dL (2.5-4.9)
[2017-07-26 07:29] LABS: INTERNATIONAL NORM RATIO 1.1 (2.0-3.5)
[2017-07-26 07:39] LABS: THYROID STIM HORMONE (HS) 0.442 uIU/ml (0.358-4.75)
[2017-07-26 07:48] LABS: POTASSIUM 5.3 mmol/L (3.5-5.1)
[2017-07-26 08:19] LABS: VITAMIN D, 25-HYDROXY 10.3 ng/mL (30-100)
[2017-07-26 08:20] LABS: PTH INTACT 625.3 pg/mL (14.0-72.0)
[2017-07-26 12:39] VITALS: BP 118/71
[2017-07-26 16:00] VITALS: BP 100/58
[2017-07-26 20:00] VITALS: BP 105/58
[2017-07-27] VITALS: BP 102/54
[2017-07-27 08:00] VITALS: BP 95/44
[2017-07-27 08:22] LABS: ALBUMIN 3.9 gm/dl (3.1-4.5); CREATININE 8.8 mg/dL (0.70-1.30); PHOSPHOROUS 6.1 mg/dL (2.5-4.9); TOTAL PROTEIN 8.6 gm/dL (6.4-8.2)
[2017-07-27 08:26] LABS: POTASSIUM 4.3 mmol/L (3.5-5.1)
[2017-07-27 08:28] LABS: BASO # 0.1 10*3/uL (0.0-0.1); BASO % 0.7 % (0.0-1.0); EOS # 0.2 10*3/uL (0.0-0.4); HEMATOCRIT 36.8 % (42.0-52.0); HEMOGLOBIN 12.6 g/dl (14.0-18.0); LYMPH # 2.1 10*3/uL (1.3-4.4); LYMPH % 21.4 % (27.0-41.0); MEAN CELL VOLUME 91.3 fl (80.0-94.0); MEAN CORPUSCULAR HGB 31.3 pg (27.0-31.0); MEAN CORPUSCULAR HGB CONC 34.2 g/dl (33.0-37.0); MEAN PLATELET VOLUME 10.4 fl (9.6-12.3); MONO # 0.7 10*3/uL (0.1-1.0); MONO % 7.5 % (3.0-9.0); NEUT # 6.5 10*3/uL (2.3-7.9); RED BLOOD COUNT 4.03 10*6/uL (4.50-5.90); RED CELL DISTRI WIDTH 14.4 % (0-14.5); WHITE BLOOD COUNT 9.6 10*3/uL (4.8-10.8)
[2017-07-27 08:40] LABS: PLATELET COUNT AUTOMATED 338 10*3/uL (130-400)
[2017-07-27 12:00] VITALS: BP 100/56
[2017-07-27] MEDS ORDERED: TOPROL XL50 M1 PO (14:00)
[2017-07-27] MEDS ORDERED: ATORVASTATIN CA80 M1 PO (14:00)
[2017-07-27] MEDS ORDERED: NATURE'S BLEND500 M5 PO (14:08)
[2017-07-27] MEDS ORDERED: CALCIUM ACETAT667 M2 PO (14:08)
== END 2017-07-27 15:58 | disposition home or self-care (01) | DRG 640 ==
LOC: ED 13:14 → 4E 14:12 → EDHOLD 14:12 → ICCU 14:41 → 4E 19:13
PROVIDERS: Emergency Medicine; Family Medicine; Internal Medicine Nephrology; Student in an Organized Health Care Education/Training Program
PROC: 5A1D70Z Performance of Urinary Filtration, Intermittent, Less than 6 Hours Per Day (ICD-10-PCS; principal; 2017-07-26)
DX: E83.51 Hypocalcemia (principal); N18.6 End stage renal disease; I13.2 Hypertensive heart and chronic kidney disease with heart failure and with stage 5 chronic kidney disease, or end stage renal disease; I47.2 Ventricular tachycardia; E87.1 Hypo-osmolality and hyponatremia; I50.42 Chronic combined systolic (congestive) and diastolic (congestive) heart failure; E87.5 Hyperkalemia; E11.22 Type 2 diabetes mellitus with diabetic chronic kidney disease; E11.65 Type 2 diabetes mellitus with hyperglycemia; Z99.2 Dependence on renal dialysis; E78.00 Pure hypercholesterolemia, unspecified; E83.39 Other disorders of phosphorus metabolism; D72.829 Elevated white blood cell count, unspecified; R79.82 Elevated C-reactive protein (CRP); D64.9 Anemia, unspecified; R20.2 Paresthesia of skin; E87.8 Other disorders of electrolyte and fluid balance, not elsewhere classified; D72.9 Disorder of white blood cells, unspecified; D72.810 Lymphocytopenia; I25.10 Atherosclerotic heart disease of native coronary artery without angina pectoris; Z80.0 Family history of malignant neoplasm of digestive organs; Z82.49 Family history of ischemic heart disease and other diseases of the circulatory system; Z79.82 Long term (current) use of aspirin; Z79.4 Long term (current) use of insulin; Z79.899 Other long term (current) drug therapy; I35.1 Nonrheumatic aortic (valve) insufficiency

== ENCOUNTER 2017-08-08 08:41 | Inpatient (IN) | payer OTHER ==
[~2017-08-08] VITALS: Ht 175.2 cm; Wt 95.3 kg
[2017-08-08] VITALS (9 sets, daily range): BP systolic 115–152; BP diastolic 69–97
--- NOTE | ~2017-08-08 | CON ---
[place], [place] REPORT OF CONSULTATION NAME: KIZZY GARCIA UNIT #: [id number] ROOM: 415 DOCTOR: JV CHAMBERS MD BIRTHDATE: [birth year] DOS: 08/08/2017 REASON FOR CONSULTATION: End-stage renal disease. HISTORY OF PRESENT ILLNESS: The patient is a 51-year-old gentleman known to our service for his history of end-stage renal disease. He has been undergoing dialysis on Wednesday, Wednesday and Wednesday schedule at [facility]. He has a history of diabetes, hypertension as a cause for his renal failure. His is at the bedside. He was recently hospitalized with numbness, tingling and reported to have V-Tach. Due to abnormal calcium levels possibly, he also has hyperkalemia, which should improve at that time earlier this month. He has a left arm AV fistula, which has been cannulated now for the last couple of months without significant issues. He began to get dyspneic last night and could not lay down to breathe. His orthopnea worsened. He came to the hospital and he developed some sweats, but no significant chest pains or anginal symptoms. He has been seen by Cardiology in the past and has had mild elevations in troponins. He states that the thing that helped his shortness of breath the most was breathing treatments that were given in the Emergency Department. He is lying down comfortably with no acute distress and on room air at this time saturating 95%. His blood pressures tend to run somewhat on the high side, but they have been well controlled lately in the 130s-150s over 60s-90s. He is afebrile. No sick contacts reported. REVIEW OF SYSTEMS: All systems reviewed and negative except for as per HPI. PAST MEDICAL HISTORY: As above as well as hyperlipidemia, vitamin D deficiency, hypocalcemia, partial lobectomy AV fistula creation and inguinal hernia repair. SOCIAL HISTORY: Past smoking. No toxic habits reported. Does not cook with a lot of salt, per . FAMILY HISTORY: Negative for known renal failure. ALLERGIES: No known drug allergies. HOME MEDICATIONS: Reviewed from the chart. PHYSICAL EXAMINATION: Blood pressures are 140s/80s, afebrile, heart rates in the 90s, respiratory rate 18 and pulse ox 95% on room air. GENERAL: He is awake, alert and oriented, no acute distress, lying comfortably in bed supine with 1 pillow. His is at the bedside. He has been resting comfortably because he had a one night in the ER. He makes some urine and was given Lasix earlier. He is due to get his Bumex later that he takes at home. HEAD AND NECK: Sclerae icteric. Oropharynx is clear. Mucous membranes are moist. NECK: No JVD or lymphadenopathy. No neck stiffness. LUNGS: Clear bilaterally without audible rales or wheeze. CARDIOVASCULAR: Regular rate. No audible rub. No palpable lift or heave. ABDOMEN: Soft, nontender. No rebound. No guarding. No hepatosplenomegaly. EXTREMITIES: Without cyanosis. Trace to 1+ edema is present and stable for [place], [place] REPORT OF CONSULTATION NAME: KIZZY GARCIA UNIT #: [id number] ROOM: 415 DOCTOR: JV CHAMBERS MD BIRTHDATE: [birth year] him. Left arm AV fistula has a positive thrill and bruit. SKIN: Without diffuse rashes or breakdowns. LABORATORIES AND DIAGNOSTICS: White blood cell count 10.3, hemoglobin 11.7 and platelets 249. INR 1.0. Sodium 133, potassium 5.0, chloride 94 ____. BUN and creatinine ____, glucose 340, lactic acid 1.7, calcium 8.7, troponin 0.273, magnesium 2.0. LFTs are otherwise unremarkable. Lipase 426. Troponin 0.273. Chest radiograph personally reviewed, trace vascular congestion perhaps with mild cardiomegaly, but in an AP film. ASSESSMENT AND PLAN: End-stage renal disease, on hemodialysis. We will continue Wednesday, Wednesday and Wednesday. He is comfortable, does not require urgent acute hemodialysis at this time. Volume and hypertension blood pressures are acceptably controlled. Continue his home medications and continue gentle diuresis. He can tolerate a lot more if needed in the short term, but I counseled him on strict fluid restriction and counseled his as well. He states that he is already following a sodium restricted diet. Further cardiac workup per the primary service as needed for the troponinemia acceptable. Continue outpatient erythropoietin stimulating agents and iron, metabolic bone disease, history of hypocalcemia now improved. Continue to follow with vitamin D receptor agonist. Thank you very much for the kind of consultation. We will continue to follow with you. Dialysis has been made aware of this patient. JV CHAMBERS MD CM:CONSTR:REPORT OF CONSULTATION 1406 08/08/17 2138 interface
[~2017-08-08 08:41] MED LIST changes: +ATORVASTATIN CA80 M1 PO; +BUMETANIDE2 MG PO; +CALCIUM ACETAT667 M2 PO; +ISOSORBIDE MON120 MG PO; +NATURE'S BLEND500 M5 PO; +NORVASC5 MG PO; +TOPROL XL50 M1 PO
[2017-08-08 09:07] LABS: BASO # 0.1 10*3/uL (0.0-0.1); BASO % 0.6 % (0.0-1.0); EOS # 0.1 10*3/uL (0.0-0.4); EOS % 1.1 % (1.0-4.0); HEMATOCRIT 33.8 % (42.0-52.0); HEMOGLOBIN 11.7 g/dl (14.0-18.0); LYMPH # 1.3 10*3/uL (1.3-4.4); LYMPH % 12.6 % (27.0-41.0); MEAN CELL VOLUME 88.3 fl (80.0-94.0); MEAN CORPUSCULAR HGB 30.5 pg (27.0-31.0); MEAN CORPUSCULAR HGB CONC 34.6 g/dl (33.0-37.0); MEAN PLATELET VOLUME 10.1 fl (9.6-12.3); MONO # 0.5 10*3/uL (0.1-1.0); NEUT # 8.3 10*3/uL (2.3-7.9); NEUT % 80.3 % (47.0-73.0); PLATELET COUNT AUTOMATED 249 10*3/uL (130-400); RED BLOOD COUNT 3.83 10*6/uL (4.50-5.90); RED CELL DISTRI WIDTH 13.8 % (0-14.5); WHITE BLOOD COUNT 10.3 10*3/uL (4.8-10.8)
[2017-08-08 09:18] LABS: ACT PARTIAL THROMBO TIME 21.3 SECONDS (20.8-31.5)
[2017-08-08 09:22] LABS: ALBUMIN 3.6 gm/dl (3.1-4.5); CREATININE 9.74 mg/dL (0.70-1.30); TOTAL PROTEIN 7.9 gm/dL (6.4-8.2)
[2017-08-08 09:25] LABS: TROPONIN I 0.273 ng/ml (<0.045)
[2017-08-09] VITALS: BP 135/74
[2017-08-09 06:37] LABS: ALBUMIN 3.4 gm/dl (3.1-4.5); CREATININE 11.2 mg/dL (0.70-1.30); PHOSPHOROUS 4.2 mg/dL (2.5-4.9); POTASSIUM 4.3 mmol/L (3.5-5.1); TOTAL PROTEIN 7.2 gm/dL (6.4-8.2)
[2017-08-09 06:51] LABS: BASO # 0.1 10*3/uL (0.0-0.1); BASO % 0.8 % (0.0-1.0); EOS # 0.1 10*3/uL (0.0-0.4); EOS % 1.6 % (1.0-4.0); HEMATOCRIT 28.9 % (42.0-52.0); LYMPH # 1.4 10*3/uL (1.3-4.4); LYMPH % 18.4 % (27.0-41.0); MEAN CELL VOLUME 89.2 fl (80.0-94.0); MEAN CORPUSCULAR HGB 30.9 pg (27.0-31.0); MEAN CORPUSCULAR HGB CONC 34.6 g/dl (33.0-37.0); MEAN PLATELET VOLUME 10.7 fl (9.6-12.3); MONO # 0.5 10*3/uL (0.1-1.0); MONO % 6.6 % (3.0-9.0); NEUT # 5.4 10*3/uL (2.3-7.9); NEUT % 72.2 % (47.0-73.0); PLATELET COUNT AUTOMATED 238 10*3/uL (130-400); RED BLOOD COUNT 3.24 10*6/uL (4.50-5.90); RED CELL DISTRI WIDTH 13.7 % (0-14.5); WHITE BLOOD COUNT 7.5 10*3/uL (4.8-10.8)
[2017-08-09 12:00] VITALS: BP 145/75
[2017-08-09 16:00] VITALS: BP 112/59
[2017-08-09 20:00] VITALS: BP 111/63
[2017-08-10 05:09] LABS: ALBUMIN 3.8 gm/dl (3.1-4.5); CREATININE 8.49 mg/dL (0.70-1.30); PHOSPHOROUS 4.4 mg/dL (2.5-4.9); POTASSIUM 4.1 mmol/L (3.5-5.1)
[2017-08-10 08:00] VITALS: BP 106/79
[2017-08-10 12:00] VITALS: BP 105/51
[2017-08-10] MEDS ORDERED: CALCIUM CARBON200 MG PO (13:34)
[2017-08-10] MEDS ORDERED: CALCIUM ACETAT667 MG PO (13:34)
== END 2017-08-10 14:02 | disposition home or self-care (01) | DRG 291 ==
LOC: ED 08:41 → EDHOLD 10:25 → 4E 10:25
PROVIDERS: Emergency Medicine; Internal Medicine; Internal Medicine Nephrology
PROC: 5A1D70Z Performance of Urinary Filtration, Intermittent, Less than 6 Hours Per Day (ICD-10-PCS; principal; 2017-08-09)
DX: I13.2 Hypertensive heart and chronic kidney disease with heart failure and with stage 5 chronic kidney disease, or end stage renal disease (principal); N18.6 End stage renal disease; E11.22 Type 2 diabetes mellitus with diabetic chronic kidney disease; E87.8 Other disorders of electrolyte and fluid balance, not elsewhere classified; I50.32 Chronic diastolic (congestive) heart failure; E11.65 Type 2 diabetes mellitus with hyperglycemia; D72.9 Disorder of white blood cells, unspecified; E78.00 Pure hypercholesterolemia, unspecified; E83.51 Hypocalcemia; D64.9 Anemia, unspecified; D72.810 Lymphocytopenia; E66.09 Other obesity due to excess calories; Z79.4 Long term (current) use of insulin; Z99.2 Dependence on renal dialysis; Z87.891 Personal history of nicotine dependence; Z82.49 Family history of ischemic heart disease and other diseases of the circulatory system; Z80.0 Family history of malignant neoplasm of digestive organs; Z79.82 Long term (current) use of aspirin; Z79.899 Other long term (current) drug therapy; Z68.31 Body mass index [BMI] 31.0-31.9, adult; I25.2 Old myocardial infarction

== ENCOUNTER 2017-08-15 07:06 | Emergency (ER) | payer OTHER ==
[~2017-08-15] VITALS: Ht 172.7 cm; Wt 97.5 kg
[~2017-08-15 07:06] MED LIST changes: +CALCIUM ACETAT667 MG PO; +CALCIUM CARBON200 MG PO
[2017-08-15 07:38] LABS: BASO # 0.1 10*3/uL (0.0-0.1); BASO % 0.6 % (0.0-1.0); EOS # 0.2 10*3/uL (0.0-0.4); EOS % 1.7 % (1.0-4.0); HEMATOCRIT 32.3 % (42.0-52.0); HEMOGLOBIN 11.1 g/dl (14.0-18.0); LYMPH # 1.6 10*3/uL (1.3-4.4); LYMPH % 16.9 % (27.0-41.0); MEAN CELL VOLUME 90.7 fl (80.0-94.0); MEAN CORPUSCULAR HGB 31.2 pg (27.0-31.0); MEAN CORPUSCULAR HGB CONC 34.4 g/dl (33.0-37.0); MEAN PLATELET VOLUME 10.4 fl (9.6-12.3); MONO # 0.5 10*3/uL (0.1-1.0); MONO % 5.6 % (3.0-9.0); NEUT # 6.9 10*3/uL (2.3-7.9); NEUT % 74.9 % (47.0-73.0); PLATELET COUNT AUTOMATED 240 10*3/uL (130-400); RED BLOOD COUNT 3.56 10*6/uL (4.50-5.90); RED CELL DISTRI WIDTH 14.1 % (0-14.5); WHITE BLOOD COUNT 9.3 10*3/uL (4.8-10.8)
[2017-08-15 07:46] LABS: ACT PARTIAL THROMBO TIME 20.9 SECONDS (20.8-31.5)
[2017-08-15 07:54] LABS: ALBUMIN 3.5 gm/dl (3.1-4.5); CREATININE 9.47 mg/dL (0.70-1.30); POTASSIUM 5.7 mmol/L (3.5-5.1); TOTAL PROTEIN 7.6 gm/dL (6.4-8.2)
[2017-08-15 07:59] LABS: TROPONIN I 0.536 ng/ml (<0.045)
== END 2017-08-15 08:54 | disposition home or self-care (01) ==
LOC: ED 07:06
PROVIDERS: Student in an Organized Health Care Education/Training Program
DX: R06.02 Shortness of breath (principal); F17.200 Nicotine dependence, unspecified, uncomplicated; I13.2 Hypertensive heart and chronic kidney disease with heart failure and with stage 5 chronic kidney disease, or end stage renal disease; E11.22 Type 2 diabetes mellitus with diabetic chronic kidney disease; N18.6 End stage renal disease; I50.9 Heart failure, unspecified; E11.65 Type 2 diabetes mellitus with hyperglycemia; E66.9 Obesity, unspecified; Z99.2 Dependence on renal dialysis; Z79.4 Long term (current) use of insulin; Z79.82 Long term (current) use of aspirin; Z79.899 Other long term (current) drug therapy

== ENCOUNTER → 2017-10-13 | Outpatient (CLI) | payer OTHER ==
[2017-10-13 11:50] LABS: CHOLESTEROL 121 mg/dL (<200); CPK 68 U/L (39-308); HDL CHOLESTEROL 38 mg/dl (40-60); LDL CHOLESTEROL 7 mg/dL (9-159); TRIGLYCERIDES 379 mg/dl (<150); VLDL CHOLESTEROL 76 mg/dL (6-40)
== END | disposition home or self-care (01) ==
LOC: LAB 10:52
PROVIDERS: Family Medicine
DX: I25.10 Atherosclerotic heart disease of native coronary artery without angina pectoris (principal); E11.22 Type 2 diabetes mellitus with diabetic chronic kidney disease

== ENCOUNTER 2018-01-23 14:38 | Emergency (ER) | payer OTHER ==
[~2018-01-23] VITALS: Ht 172.7 cm; Wt 99.8 kg
--- NOTE | ~2018-01-23 | EKG ---
[place], [place] ELECTROCARDIOGRAM REPORT NAME: KIZZY GARCIA UNIT #: [id number] ROOM: DOCTOR: EPIPHANY DRAFT REPORT BIRTHDATE: [birth year] [facility] Test Date: 2018-01-23 Test Time: 15:04:07 Pat Name: KIZZY GARCIA Department: Room: Gender: M [employer] Solutions Architect: : 1965 Requested By: YOJANA TIDWELL PA-C Order Number: [id number] Reading MD: Saúl Islas MD Measurements Intervals [place] Rate: 73 P: 22 WV: 161 QRS: 67 QRSD: 110 T: -3 QT: 405 QTc: 447 Interpretive Statements Sinus rhythm Probable left atrial enlargement Electronically Signed On 01-23-2018 14:32:12 PDT by Saúl Islas MD CM:EKGRPT:ELECTROCARDIOGRAM REPORT 1504 1432 YOJANA TIDWELL PA-C EPIPHANY DRAFT REPORT YOJANA TIDWELL PA-C
[2018-01-23] MEDS ORDERED: NORVASC10 MG PO (14:56)
[2018-01-23] MEDS ORDERED: NITROSTAT0.4 MG SL (14:57)
[2018-01-23 15:22] LABS: BASO # 0.1 10*3/uL (0.0-0.1); BASO % 0.6 % (0.0-1.0); EOS # 0.2 10*3/uL (0.0-0.4); EOS % 2.5 % (1.0-4.0); HEMOGLOBIN 11.3 g/dl (14.0-18.0); LYMPH # 1.7 10*3/uL (1.3-4.4); LYMPH % 22.5 % (27.0-41.0); MEAN CELL VOLUME 93.9 fl (80.0-94.0); MEAN CORPUSCULAR HGB 31.2 pg (27.0-31.0); MEAN CORPUSCULAR HGB CONC 33.2 g/dl (33.0-37.0); MEAN PLATELET VOLUME 10.4 fl (9.6-12.3); MONO # 0.5 10*3/uL (0.1-1.0); MONO % 6.7 % (3.0-9.0); NEUT # 5.2 10*3/uL (2.3-7.9); NEUT % 67.3 % (47.0-73.0); PLATELET COUNT AUTOMATED 215 10*3/uL (130-400); RED BLOOD COUNT 3.62 10*6/uL (4.50-5.90); RED CELL DISTRI WIDTH 15.1 % (0-14.5); WHITE BLOOD COUNT 7.7 10*3/uL (4.8-10.8)
[2018-01-23 15:39] LABS: ALBUMIN 3.7 gm/dl (3.1-4.5); CREATININE 9.64 mg/dL (0.70-1.30); POTASSIUM 5.1 mmol/L (3.5-5.1); TOTAL PROTEIN 7.7 gm/dL (6.4-8.2)
[2018-01-23 15:40] LABS: TROPONIN I 0.025 ng/ml (<0.045)
== END 2018-01-23 16:33 | disposition left against medical advice (07) ==
LOC: ED 14:38
PROVIDERS: Physician Assistant
DX: R06.02 Shortness of breath (principal); I25.2 Old myocardial infarction; I10 Essential (primary) hypertension; E11.9 Type 2 diabetes mellitus without complications; Z79.82 Long term (current) use of aspirin; Z79.899 Other long term (current) drug therapy; Z87.891 Personal history of nicotine dependence; Z79.4 Long term (current) use of insulin

== ENCOUNTER → 2018-05-10 | Outpatient (CLI) | payer OTHER ==
[~2018-05-10] MED LIST changes: +NITROSTAT0.4 MG SL; +NORVASC10 MG PO
--- NOTE | ~2018-05-10 | ST ---
[place], [place] EXERCISE STRESS TEST REPORT NAME: KIZZY GARCIA UNIT #: [id number] ROOM: DOCTOR: ECHO LEBLANC MD BIRTHDATE: [birth year] DOS: 05/10/2018 PHARMACOLOGIC STRESS TEST The patient did undergo a pharmacologic stress test today. He was given a rapid infusion of regadenoson 0.4 mg intravenously followed by a saline flush. He felt slightly dyspneic, but had no other significant symptoms. The resting electrocardiogram showed poor precordial R-wave progression, but was otherwise unremarkable. No significant changes occurred during the infusion. He did have a normal increase in his heart rate from a resting rate of 86 to a post-stress rate of 92. Forty seconds after the infusion of regadenoson, he was given radionuclide intravenously. IMPRESSION: 1. Well tolerated infusion of regadenoson. 2. Radionuclide administered. Please see the separate imaging report for further details of the patient's stress test results. ECHO LEBLANC MD CM:STRESS:EXERCISE STRESS TEST REPORT 0954 1421 ECHO LEBLANC MD
== END | disposition home or self-care (01) ==
LOC: CARD 05-09 08:30
DX: R93.1 Abnormal findings on diagnostic imaging of heart and coronary circulation (principal); I25.10 Atherosclerotic heart disease of native coronary artery without angina pectoris; R53.81 Other malaise

== ENCOUNTER → 2019-03-06 | Outpatient (CLI) | payer MEDICARE, MEDICAID ==
[2019-03-06 11:32] LABS: THYROID STIM HORMONE (HS) 0.898 uIU/ml (0.358-4.75)
== END | disposition home or self-care (01) ==
LOC: LAB 10:34
PROVIDERS: Family Medicine
DX: E11.22 Type 2 diabetes mellitus with diabetic chronic kidney disease (principal); N18.6 End stage renal disease

== ENCOUNTER → 2019-05-18 | Outpatient (CLI) | payer MEDICARE, MEDICAID | END | disposition home or self-care (01) | LOC: LAB 16:06 | DX: E11.22 Type 2 diabetes mellitus with diabetic chronic kidney disease (principal); N18.9 Chronic kidney disease, unspecified ==

== ENCOUNTER → 2020-01-30 | Outpatient (CLI) | payer OTHER, MEDICARE, MEDICAID | END | disposition home or self-care (01) | LOC: CARD 02:01 | DX: I08.0 Rheumatic disorders of both mitral and aortic valves (principal); I10 Essential (primary) hypertension; I25.10 Atherosclerotic heart disease of native coronary artery without angina pectoris ==

== ENCOUNTER → 2020-05-22 | Outpatient (CLI) | payer MEDICARE, OTHER ==
[~2020-05-22] MED LIST changes: +IMDUR SA60 M1 PO; +LEVEMIR100 UNIT/1 SC; +LIPITOR40 MG PO; +NOVOLOG100 UNIT/1 SQ
[2020-05-22 12:08] LABS: THYROID STIM HORMONE (HS) 1.27 uIU/ml (0.358-4.75)
== END | disposition home or self-care (01) ==
LOC: LAB 10:54
PROVIDERS: ATTEND Family Medicine
DX: I12.9 Hypertensive chronic kidney disease with stage 1 through stage 4 chronic kidney disease, or unspecified chronic kidney disease (principal); E11.22 Type 2 diabetes mellitus with diabetic chronic kidney disease; N18.9 Chronic kidney disease, unspecified; E78.2 Mixed hyperlipidemia

== ENCOUNTER 2020-05-26 19:16 | Observation (INO) | payer MEDICARE, OTHER ==
[~2020-05-26] VITALS: Ht 172.7 cm; Wt 98.6 kg
[~2020-05-26 19:16] MED LIST changes: -IMDUR SA60 M1 PO; -LEVEMIR100 UNIT/1 SC; -LIPITOR40 MG PO; -NOVOLOG100 UNIT/1 SQ
[2020-05-26 19:26] VITALS: BP 111/94
[2020-05-26 20:30] VITALS: BP 108/68
[2020-05-26 20:32] LABS: BASO # 0.1 10*3/uL (0.0-0.1); BASO % 0.9 % (0.0-1.0); EOS # 0.2 10*3/uL (0.0-0.4); EOS % 1.3 % (1.0-4.0); HEMATOCRIT 51.1 % (42.0-52.0); LYMPH # 1.9 10*3/uL (1.3-4.4); LYMPH % 15.9 % (27.0-41.0); MEAN CELL VOLUME 94.6 fl (80.0-94.0); MEAN CORPUSCULAR HGB 28.1 pg (27.0-31.0); MEAN CORPUSCULAR HGB CONC 29.7 g/dl (33.0-37.0); MEAN PLATELET VOLUME 10.7 fl (9.6-12.3); MONO % 8.7 % (3.0-9.0); NEUT # 8.5 10*3/uL (2.3-7.9); NEUT % 72.8 % (47.0-73.0); NUCLEATED RED BLOOD CELL 0.2 % (0.0-0.0); PLATELET COUNT AUTOMATED 383 10*3/uL (130-400); RED CELL DISTRI WIDTH 18.3 % (0-14.5); WHITE BLOOD COUNT 11.7 10*3/uL (4.8-10.8)
[2020-05-26 20:43] LABS: INTERNATIONAL NORM RATIO 1.3 (2.0-3.5)
[2020-05-26 20:48] LABS: ALBUMIN 3.5 gm/dl (3.1-4.5); CREATININE 10.5 mg/dL (0.70-1.30); TOTAL PROTEIN 8.1 gm/dL (6.4-8.2)
[2020-05-26 21:05] LABS: POTASSIUM 6.3 mmol/L (3.5-5.1)
[2020-05-26 21:07] LABS: TROPONIN I 0.135 ng/ml (<0.045)
--- NOTE | 2020-05-26 23:06 | NUR ---
THE PATIENT IS RESTING ON THE BED WITH HIS EYES CLOSED. RESP ARE EASY AND NON-LABORED. THE CALL LIGHT IS ATTACHED TO THE BED RAIL
--- NOTE | 2020-05-26 23:28 | NUR ---
PT RESTING IN BED WITH EYES CLOSED, NO ACUTE DISTRESS NOTED, CALL LIGHT WITHIN REACH, RN WILL CONTINUE TO MONITOR
--- NOTE | 2020-05-27 00:41 | NUR ---
[facility] FAXED TO 5TH FLOOR, PHONED BONI SINGH FOR TRANSPORT
[2020-05-27 01:00] VITALS: BP 106/65
--- NOTE | 2020-05-27 01:00 | NUR ---
A 54, admitted to 5E, under the services of SABA Lunsford DO with a diagnosis of CHF, RENAL FAILURE. Chief complaint is SHORTNESS OF BREATH. Patient arrived via bed from ER. Monitor applied. Initial assessment completed. Vital signs taken and recorded. SABA LUNSFORD DO notified of admission to the unit. Orders received. See assessment for past medical history, medications and allergies. Patient and/or family oriented to unit. [address] visitation policy reviewed. Clothing/patient valuable form completed. BONI CLINTON
[2020-05-27] MEDS ORDERED: LIPITOR40 MG PO (01:24)
[2020-05-27] MEDS ORDERED: NOVOLOG100 UNIT/1 SQ (01:25)
[2020-05-27] MEDS ORDERED: LEVEMIR100 UNIT/1 SC (01:28)
--- NOTE | 2020-05-27 01:45 | NUR ---
SPOKE WITH DR. MCLAUGHLIN AT THIS TIME FOR ADMISSION ORDERS. DISCUSSED LABS AND NOTIFIED HER THAT PATIENT IS A DIALYSIS PATIENT. ADMISSION ORDERS RECIEVED
[2020-05-27] MEDS ORDERED: RENVELA800 MG PO (01:58)
[2020-05-27] MEDS ORDERED: METOPROLOL SUCC50 M2 PO (01:59)
--- NOTE | 2020-05-27 01:59 | NUR ---
MEDS UPDATED PER LIST PROVIDED BY PATIENT
--- NOTE | 2020-05-27 02:18 | NUR ---
NOTIFIED DR. MCLAUGHLIN OF CRITICAL LACTIC ACID.
--- NOTE | 2020-05-27 03:50 | NUR ---
DR. MCLAUGHLIN AWARE OF LACTIC ACID
--- NOTE | 2020-05-27 05:02 | NUR ---
NOTIFIED LEDA AT [facility] ANSWERING SERVICE OF PATIENTS ADMISSION TO THE FLOOR.
--- NOTE | 2020-05-27 06:59 | NUR ---
NOTIFIED [facility] CH[facility]BERS[facility] ANSWERING SERVICE OF CONSULT
--- NOTE | 2020-05-27 07:34 | NUR ---
ARRIVED ON SHIFT, REPORT RECEIVED, ASSUMED CARE OF PATIENT.
--- NOTE | 2020-05-27 07:35 | NUR ---
INTRODUCED SELF TO PATIENT, BED IN LOW POSITION, WHEEL LOCKS ENGAGED, SIDE RAILS UPX 2 FOR TURNING AD REPOSITIONING, CALL LIGHT WITHIN REACH, NO NEEDS VOICED AT THIS TIME, WHITE BOARD UPDATED.
--- NOTE | 2020-05-27 07:36 | NUR ---
Shift chart check completed.
--- NOTE | 2020-05-27 09:00 | NUR ---
[employer] Specialist in to talk to patient. Patient states lives at home with . There are 10 steps in the home. Physician: edda [facility] Patient's level of ADLs: INDEPENDENT Patient has working utilities: all working DME: none Follow-up physician's appointment after d/c: will be made by hospitalist nurse director upon discharge Does patient want to access PORTAL?: no Discharge plan discussed with patient, he states he lives at home with his , is independent in adls and ambulation, drives, has dialysis Wednesday, and Wednesday. he stated he will return home when discharged and denies any home needs, case management will follow. FRANCISCO JANG
[2020-05-27 12:00] VITALS: BP 117/54
[2020-05-27 16:00] VITALS: BP 106/69
--- NOTE | 2020-05-27 18:00 | NUR ---
PATIENT RETURNED FROM DIALYSIS PER DIALSIS NURSE, PT HAD 10 LB WEIGHT LOSS, 5.2 KILOS WHERE REMOVED AND VSS DURING DIALYSIS, HE IS ASO TO HAVE DILAYSIS TOMORROW AM @ 0700, THEN POSSIBLE DISCHARGE,.
--- NOTE | 2020-05-27 19:24 | NUR ---
RECEIVED CRITICAL LABS OF TROPONIN 0.130 AND LACTIC ACID OF 3.4, NOTIFIED DR. RODRIGES
[2020-05-27 20:00] VITALS: BP 114/65
--- NOTE | 2020-05-27 20:20 | NUR ---
SITTING UP AT BEDSIDE. HEP LOCK INTACT TO RIGHT ARM; SITE ASYMPTOMATIC. PT. VOICES NO C/O AT THIS TIME. CALL LIGHT WITHIN REACH.
--- NOTE | 2020-05-27 22:43 | NUR ---
CALLED DR. ROBERSON WITH LACTIC ACID/TROPONIN RESULTS.
[2020-05-27 23:41] VITALS: BP 90/50
--- NOTE | 2020-05-28 04:00 | NUR ---
RESTING IN BED; VOICES NO C/O AT THIS TIME. CALL LIGHT WITHIN REACH.
[2020-05-28 06:46] LABS: BASO # 0.1 10*3/uL (0.0-0.1); BASO % 0.8 % (0.0-1.0); EOS # 0.1 10*3/uL (0.0-0.4); EOS % 1.8 % (1.0-4.0); HEMATOCRIT 43.9 % (42.0-52.0); LYMPH # 0.9 10*3/uL (1.3-4.4); LYMPH % 12.2 % (27.0-41.0); MEAN CELL VOLUME 93.2 fl (80.0-94.0); MEAN CORPUSCULAR HGB 28.9 pg (27.0-31.0); MEAN PLATELET VOLUME 10.9 fl (9.6-12.3); MONO # 0.5 10*3/uL (0.1-1.0); NEUT # 5.7 10*3/uL (2.3-7.9); NEUT % 77.8 % (47.0-73.0); PLATELET COUNT AUTOMATED 276 10*3/uL (130-400); RED BLOOD COUNT 4.71 10*6/uL (4.50-5.90); RED CELL DISTRI WIDTH 18.3 % (0-14.5); WHITE BLOOD COUNT 7.3 10*3/uL (4.8-10.8)
[2020-05-28 06:52] LABS: TOTAL PROTEIN 6.8 gm/dL (6.4-8.2)
[2020-05-28 06:55] LABS: POTASSIUM 4.1 mmol/L (3.5-5.1)
[2020-05-28 07:16] LABS: ALBUMIN 2.9 gm/dl (3.1-4.5); CREATININE 7.86 mg/dL (0.70-1.30); POTASSIUM 4.1 mmol/L (3.5-5.1)
--- NOTE | 2020-05-28 09:30 | NUR ---
case mangement visits with patient, he states he will return home when discharged and denies any home needs, case management will follow
[2020-05-28 12:00] VITALS: BP 131/90
[2020-05-28] MEDS ORDERED: IMDUR SA60 M1 PO (12:18)
--- NOTE | 2020-05-28 13:20 | NUR ---
PATIENT DISCHARGED TO HOME. ALL PERSONAL BELONGINGS SENT WITH PATIENT. IV AND EMERGENCY COMMUNICATIONS DISPATCHER DISCONTINUED. DISCHARGE INSTRUCTIONS GIVEN AND REVIEWED WITH PATIENT. INSTRUCTED ON DATE TIME FOR LIVER ULTRASOUND.
== END 2020-05-28 13:20 | disposition home or self-care (01) ==
LOC: ED 19:16 → 5E 23:36 → EDHOLD 23:36 → 5E 05-27 00:43
PROVIDERS: Emergency Medicine; Internal Medicine Nephrology; Registered Nurse; ADMIT Family Medicine; ATTEND Family Medicine
DX: I13.2 Hypertensive heart and chronic kidney disease with heart failure and with stage 5 chronic kidney disease, or end stage renal disease (principal); I50.9 Heart failure, unspecified; N18.6 End stage renal disease; E78.00 Pure hypercholesterolemia, unspecified; E11.65 Type 2 diabetes mellitus with hyperglycemia; R06.00 Dyspnea, unspecified

== ENCOUNTER → 2020-05-30 | Outpatient (CLI) | payer MEDICARE, OTHER ==
[~2020-05-30] MED LIST changes: +IMDUR SA60 M1 PO; +LEVEMIR100 UNIT/1 SC; +LIPITOR40 MG PO; +NOVOLOG100 UNIT/1 SQ
== END | disposition home or self-care (01) ==
LOC: US 06:47
PROVIDERS: ATTEND Registered Nurse
DX: K82.4 Cholesterolosis of gallbladder (principal); Q61.3 Polycystic kidney, unspecified; K82.8 Other specified diseases of gallbladder

== ENCOUNTER 2020-07-29 10:46 | Inpatient (IN) | payer MEDICARE, OTHER ==
[~2020-07-29] VITALS: Wt 99.8 kg
[2020-07-29] VITALS (10 sets, daily range): BP systolic 80–127; BP diastolic 45–70
[2020-07-29 11:40] LABS: HEMATOCRIT 47.4 % (42.0-52.0); MEAN CELL VOLUME 88.4 fl (80.0-94.0); MEAN CORPUSCULAR HGB 27.4 pg (27.0-31.0); MEAN PLATELET VOLUME 11.7 fl (9.6-12.3); PLATELET COUNT AUTOMATED 266 10*3/uL (130-400); RED BLOOD COUNT 5.36 10*6/uL (4.50-5.90); RED CELL DISTRI WIDTH 20.4 % (0-14.5); WHITE BLOOD COUNT 9.9 10*3/uL (4.8-10.8)
[2020-07-29 11:53] LABS: ACT PARTIAL THROMBO TIME 25.1 SECONDS (20.0-32.1); INTERNATIONAL NORM RATIO 1.2 (2.0-3.5)
[2020-07-29 12:00] LABS: ALBUMIN 3.5 gm/dl (3.1-4.5); CREATININE 5.28 mg/dL (0.70-1.30); POTASSIUM 3.7 mmol/L (3.5-5.1); TOTAL PROTEIN 8.3 gm/dL (6.4-8.2); TROPONIN I 0.029 ng/ml (<0.045)
[2020-07-29 12:12] LABS: BASOPHILS 1 % (0-1); TOTAL CELLS COUNTED 100 #CELLS
[2020-07-29 12:13] LABS: PLATELET SUFFICIENCY NORMAL (NORMAL)
[2020-07-29 14:40] LABS: ABG BASE EXCESS 3.9 mmol/L (-2.0-2.0); ARTERIAL BLOOD GAS PH 7.459 (7.35-7.45)
[2020-07-30 03:26] VITALS: BP 95/62
[2020-07-30 05:17] VITALS: BP 90/54
[2020-07-30 06:27] LABS: ALBUMIN 3.1 gm/dl (3.1-4.5); CREATININE 7.03 mg/dL (0.70-1.30); TOTAL PROTEIN 7.5 gm/dL (6.4-8.2)
[2020-07-30 06:40] LABS: BASO % 0.1 % (0.0-1.0); LYMPH # 0.6 10*3/uL (1.3-4.4); LYMPH % 5.4 % (27.0-41.0); MEAN CELL VOLUME 90.9 fl (80.0-94.0); MEAN CORPUSCULAR HGB 27.3 pg (27.0-31.0); MONO # 0.6 10*3/uL (0.1-1.0); MONO % 4.7 % (3.0-9.0); NEUT # 10.6 10*3/uL (2.3-7.9); NEUT % 89.5 % (47.0-73.0); PLATELET COUNT AUTOMATED 233 10*3/uL (130-400); RED BLOOD COUNT 4.84 10*6/uL (4.50-5.90); RED CELL DISTRI WIDTH 20.2 % (0-14.5); WHITE BLOOD COUNT 11.9 10*3/uL (4.8-10.8)
[2020-07-30] MEDS ORDERED: DECADRON6 M1 PO ×2 (11:26)
== END 2020-07-30 11:34 | disposition home or self-care (01) | DRG 871 ==
LOC: ED 10:46 → EDHOLD 12:44
PROVIDERS: Emergency Medicine; Student in an Organized Health Care Education/Training Program; ADMIT Internal Medicine; ATTEND Internal Medicine
DX: A41.9 Sepsis, unspecified organism (principal); J96.01 Acute respiratory failure with hypoxia; N18.6 End stage renal disease; J18.9 Pneumonia, unspecified organism; E87.1 Hypo-osmolality and hyponatremia; I50.32 Chronic diastolic (congestive) heart failure; I13.0 Hypertensive heart and chronic kidney disease with heart failure and stage 1 through stage 4 chronic kidney disease, or unspecified chronic kidney disease; I24.8 Other forms of acute ischemic heart disease; J98.11 Atelectasis; R65.20 Severe sepsis without septic shock; Z20.822 Contact with and (suspected) exposure to COVID-19; E11.65 Type 2 diabetes mellitus with hyperglycemia; E87.8 Other disorders of electrolyte and fluid balance, not elsewhere classified; E11.22 Type 2 diabetes mellitus with diabetic chronic kidney disease; E80.6 Other disorders of bilirubin metabolism; I95.9 Hypotension, unspecified; E83.39 Other disorders of phosphorus metabolism; E78.5 Hyperlipidemia, unspecified; Z82.49 Family history of ischemic heart disease and other diseases of the circulatory system; Z99.2 Dependence on renal dialysis; Z79.4 Long term (current) use of insulin; Z80.0 Family history of malignant neoplasm of digestive organs; Z79.899 Other long term (current) drug therapy

== ENCOUNTER → 2020-08-12 | Outpatient (CLI) | payer MEDICARE, OTHER ==
[~2020-08-12] MED LIST changes: +DECADRON6 M1 PO
[2020-08-12 12:41] LABS: ALBUMIN 3.6 gm/dl (3.1-4.5); BILIRUBIN, DIRECT 0.7 mg/dL (0.0-0.2)
[2020-08-13 08:10] LABS: HEP B CORE AB, IGM Negative (Negative); HEPATITIS B SURFACE AG Negative (Negative); HEPATITIS C VIRUS ANTIBODY 0.1 s/co (0.0-0.9)
== END | disposition home or self-care (01) ==
LOC: MRI 10:00 → LAB 11:47 → MRI 13:00
PROVIDERS: ATTEND Family Medicine
DX: R18.8 Other ascites (principal); R16.1 Splenomegaly, not elsewhere classified; K71.3 Toxic liver disease with chronic persistent hepatitis; N26.1 Atrophy of kidney (terminal)

== ENCOUNTER 2020-09-16 12:17 | Inpatient (IN) | payer MEDICARE, OTHER ==
[~2020-09-16] VITALS: Ht 172.7 cm; Wt 94.8 kg
[2020-09-16 12:25] VITALS: BP 104/50
[2020-09-16 13:05] LABS: BASO # 0.1 10*3/uL (0.0-0.1); BASO % 0.5 % (0.0-1.0); EOS % 0.1 % (1.0-4.0); HEMATOCRIT 43.7 % (42.0-52.0); LYMPH # 0.4 10*3/uL (1.3-4.4); LYMPH % 4.6 % (27.0-41.0); MEAN CORPUSCULAR HGB 27.7 pg (27.0-31.0); MEAN CORPUSCULAR HGB CONC 30.4 g/dl (33.0-37.0); MEAN PLATELET VOLUME 11.7 fl (9.6-12.3); MONO # 0.6 10*3/uL (0.1-1.0); MONO % 5.9 % (3.0-9.0); NEUT # 8.3 10*3/uL (2.3-7.9); NEUT % 88.6 % (47.0-73.0); PLATELET COUNT AUTOMATED 287 10*3/uL (130-400); RED CELL DISTRI WIDTH 19.6 % (0-14.5); WHITE BLOOD COUNT 9.4 10*3/uL (4.8-10.8)
[2020-09-16 13:17] LABS: ACT PARTIAL THROMBO TIME 28.3 SECONDS (20.0-32.1); INTERNATIONAL NORM RATIO 1.3 (2.0-3.5)
[2020-09-16 13:22] LABS: ALBUMIN 3.4 gm/dl (3.1-4.5); CREATININE 5.62 mg/dL (0.70-1.30); POTASSIUM 4.7 mmol/L (3.5-5.1); TOTAL PROTEIN 7.8 gm/dL (6.4-8.2)
[2020-09-16 13:25] LABS: TROPONIN I 0.102 ng/ml (<0.045)
[2020-09-16 15:56] VITALS: BP 80/50
[2020-09-16 20:00] VITALS: BP 112/82
[2020-09-16 20:28] LABS: HEMATOCRIT 45.2 % (42.0-52.0); MEAN CELL VOLUME 92.6 fl (80.0-94.0); MEAN CORPUSCULAR HGB 27.7 pg (27.0-31.0); MEAN CORPUSCULAR HGB CONC 29.9 g/dl (33.0-37.0); PLATELET COUNT AUTOMATED 279 10*3/uL (130-400); RED BLOOD COUNT 4.88 10*6/uL (4.50-5.90); RED CELL DISTRI WIDTH 19.6 % (0-14.5); WHITE BLOOD COUNT 9.7 10*3/uL (4.8-10.8)
[2020-09-16 20:49] LABS: TOTAL CELLS COUNTED 100 #CELLS
[2020-09-16 20:52] LABS: BURR CELLS FEW; PLATELET SUFFICIENCY NORMAL (NORMAL)
[2020-09-16 21:33] LABS: ALBUMIN 2.9 gm/dl (3.1-4.5); CREATININE 6.66 mg/dL (0.70-1.30); TOTAL PROTEIN 7.4 gm/dL (6.4-8.2)
[2020-09-16 21:42] LABS: TROPONIN I 0.594 ng/ml (<0.045)
[2020-09-16 21:46] LABS: ARTERIAL BLOOD GAS PH 7.414 (7.35-7.45)
== END 2020-09-17 01:13 | disposition short-term general hospital (02) | DRG 871 ==
LOC: ED 12:17 → ICCU 13:45 → 4E 13:45 → EDHOLD 13:45 → 4E 14:05 → ICCU 19:43
PROVIDERS: Emergency Medicine; Internal Medicine; Internal Medicine Critical Care Medicine; ADMIT Family Medicine; ATTEND Family Medicine
PROC: 5A1935Z Respiratory Ventilation, Less than 24 Consecutive Hours (ICD-10-PCS; principal; 2020-09-16)
DX: A41.9 Sepsis, unspecified organism (principal); J96.01 Acute respiratory failure with hypoxia; J18.9 Pneumonia, unspecified organism; I46.9 Cardiac arrest, cause unspecified; N18.6 End stage renal disease; E44.0 Moderate protein-calorie malnutrition; E87.1 Hypo-osmolality and hyponatremia; I50.32 Chronic diastolic (congestive) heart failure; I13.2 Hypertensive heart and chronic kidney disease with heart failure and with stage 5 chronic kidney disease, or end stage renal disease; R65.20 Severe sepsis without septic shock; Z20.822 Contact with and (suspected) exposure to COVID-19; E87.8 Other disorders of electrolyte and fluid balance, not elsewhere classified; E11.65 Type 2 diabetes mellitus with hyperglycemia; E80.6 Other disorders of bilirubin metabolism; E11.42 Type 2 diabetes mellitus with diabetic polyneuropathy; E11.22 Type 2 diabetes mellitus with diabetic chronic kidney disease; S91.109A Unspecified open wound of unspecified toe(s) without damage to nail, initial encounter; I99.8 Other disorder of circulatory system; Z82.49 Family history of ischemic heart disease and other diseases of the circulatory system; Z80.0 Family history of malignant neoplasm of digestive organs; Z79.4 Long term (current) use of insulin; Z68.32 Body mass index [BMI] 32.0-32.9, adult; Z79.899 Other long term (current) drug therapy; X58.XXXA Exposure to other specified factors, initial encounter; Y93.89 Activity, other specified; Y92.89 Other specified places as the place of occurrence of the external cause; Y99.8 Other external cause status

== ENCOUNTER → 2020-10-04 | Outpatient (CLI) | payer MEDICARE, OTHER ==
[2020-10-04 11:41] LABS: BASO # 0.1 10*3/uL (0.0-0.1); BASO % 1.2 % (0.0-1.0); EOS # 0.2 10*3/uL (0.0-0.4); EOS % 2.8 % (1.0-4.0); HEMATOCRIT 43.3 % (42.0-52.0); LYMPH % 13.2 % (27.0-41.0); MEAN CELL VOLUME 91.5 fl (80.0-94.0); MEAN CORPUSCULAR HGB 27.5 pg (27.0-31.0); MEAN PLATELET VOLUME 11.1 fl (9.6-12.3); MONO # 0.5 10*3/uL (0.1-1.0); NEUT # 5.7 10*3/uL (2.3-7.9); NEUT % 76.4 % (47.0-73.0); PLATELET COUNT AUTOMATED 308 10*3/uL (130-400); RED BLOOD COUNT 4.73 10*6/uL (4.50-5.90); RED CELL DISTRI WIDTH 19.9 % (0-14.5); WHITE BLOOD COUNT 7.4 10*3/uL (4.8-10.8)
[2020-10-04 12:15] LABS: CREATININE 3.74 mg/dL (0.70-1.30); POTASSIUM 3.5 mmol/L (3.5-5.1)
== END | disposition home or self-care (01) ==
LOC: LAB 11:17
PROVIDERS: ATTEND Student in an Organized Health Care Education/Training Program
DX: M86.9 Osteomyelitis, unspecified (principal); R78.81 Bacteremia; B95.61 Methicillin susceptible Staphylococcus aureus infection as the cause of diseases classified elsewhere

== ENCOUNTER 2021-01-11 12:37 | Inpatient (IN) | payer MEDICARE, OTHER ==
[~2021-01-11] VITALS: Ht 172.7 cm; Wt 103.1 kg
[2021-01-11 12:44] VITALS: BP 106/63
[2021-01-11] MEDS ORDERED: AUGMENTIN 875875 MG PO (13:22)
[2021-01-11 13:25] LABS: BASO # 0.1 10*3/uL (0.0-0.1); BASO % 0.8 % (0.0-1.0); EOS # 0.1 10*3/uL (0.0-0.4); EOS % 1.7 % (1.0-4.0); HEMATOCRIT 41.3 % (42.0-52.0); LYMPH % 12.5 % (27.0-41.0); MEAN CELL VOLUME 93.2 fl (80.0-94.0); MEAN PLATELET VOLUME 9.9 fl (9.6-12.3); MONO # 0.5 10*3/uL (0.1-1.0); MONO % 6.3 % (3.0-9.0); NEUT % 78.4 % (47.0-73.0); PLATELET COUNT AUTOMATED 276 10*3/uL (130-400); RED BLOOD COUNT 4.43 10*6/uL (4.50-5.90); RED CELL DISTRI WIDTH 18.7 % (0-14.5); WHITE BLOOD COUNT 7.6 10*3/uL (4.8-10.8)
[2021-01-11] MEDS ORDERED: ROXICODONE5 MG PO (13:25)
[2021-01-11] MEDS ORDERED: NEURONTIN100 MG PO (13:26)
[2021-01-11] MEDS ORDERED: ZESTRIL2.5 MG PO (13:27)
[2021-01-11 13:43] LABS: ALBUMIN 3.3 gm/dl (3.1-4.5); ALKALINE PHOSPHATASE 284 U/L (45-117); BUN 37 mg/dl (7-24); CHLORIDE 95 mmol/L (98-107); CREATININE 4.99 mg/dL (0.70-1.30); LIPASE 119 U/L (73-393); POTASSIUM 3.8 mmol/L (3.5-5.1); SGOT/AST 10 IU/L (3-35); SGPT/ALT 17 U/L (12-78); SODIUM 130 mmol/L (136-145)
[2021-01-11 13:46] LABS: TROPONIN I < 0.015 ng/ml (<0.045)
[2021-01-11] MEDS ORDERED: ROBAXIN100 MG/1 M PO (15:10)
[2021-01-11] MEDS ORDERED: REPAGLINIDE0.5 M1 PO (15:15)
[2021-01-11 16:00] VITALS: BP 106/63
[2021-01-11 20:00] VITALS: BP 99/55
[2021-01-12] VITALS: BP 92/56
[2021-01-12 05:40] LABS: ALBUMIN 2.9 gm/dl (3.1-4.5); CREATININE 5.98 mg/dL (0.70-1.30); POTASSIUM 4.1 mmol/L (3.5-5.1); TOTAL PROTEIN 7.1 gm/dL (6.4-8.2)
[2021-01-12 05:41] LABS: FREE T4 1.01 ng/dl (0.76-1.46)
[2021-01-12 05:46] LABS: THYROID STIM HORMONE (HS) 1.45 uIU/ml (0.358-4.75)
[2021-01-12 05:58] LABS: BASO # 0.1 10*3/uL (0.0-0.1); BASO % 1.3 % (0.0-1.0); EOS # 0.2 10*3/uL (0.0-0.4); EOS % 2.8 % (1.0-4.0); HEMATOCRIT 39.8 % (42.0-52.0); LYMPH # 1.2 10*3/uL (1.3-4.4); LYMPH % 16.3 % (27.0-41.0); MEAN CELL VOLUME 93.4 fl (80.0-94.0); MEAN CORPUSCULAR HGB 27.9 pg (27.0-31.0); MEAN CORPUSCULAR HGB CONC 29.9 g/dl (33.0-37.0); MONO # 0.5 10*3/uL (0.1-1.0); MONO % 6.8 % (3.0-9.0); NEUT # 5.2 10*3/uL (2.3-7.9); NEUT % 72.4 % (47.0-73.0); PLATELET COUNT AUTOMATED 281 10*3/uL (130-400); RED BLOOD COUNT 4.26 10*6/uL (4.50-5.90); RED CELL DISTRI WIDTH 18.6 % (0-14.5); WHITE BLOOD COUNT 7.2 10*3/uL (4.8-10.8)
[2021-01-12 08:00] VITALS: BP 112/70
[2021-01-12 12:00] VITALS: BP 94/70
[2021-01-12 16:00] VITALS: BP 106/63
[2021-01-12 20:00] VITALS: BP 96/58
[2021-01-13] VITALS: BP 99/48
[2021-01-13 05:56] LABS: POTASSIUM 4.8 mmol/L (3.5-5.1)
[2021-01-13 16:03] VITALS: BP 96/50
[2021-01-13 20:00] VITALS: BP 103/55
[2021-01-14] VITALS: BP 93/63
[2021-01-14 06:27] LABS: BASO # 0.1 10*3/uL (0.0-0.1); EOS # 0.2 10*3/uL (0.0-0.4); EOS % 2.5 % (1.0-4.0); HEMATOCRIT 39.6 % (42.0-52.0); LYMPH % 14.3 % (27.0-41.0); MEAN CELL VOLUME 93.2 fl (80.0-94.0); MEAN CORPUSCULAR HGB 28.2 pg (27.0-31.0); MEAN CORPUSCULAR HGB CONC 30.3 g/dl (33.0-37.0); MEAN PLATELET VOLUME 11.1 fl (9.6-12.3); MONO # 0.5 10*3/uL (0.1-1.0); MONO % 7.5 % (3.0-9.0); NEUT # 5.1 10*3/uL (2.3-7.9); NEUT % 74.4 % (47.0-73.0); PLATELET COUNT AUTOMATED 319 10*3/uL (130-400); RED BLOOD COUNT 4.25 10*6/uL (4.50-5.90); RED CELL DISTRI WIDTH 18.7 % (0-14.5); WHITE BLOOD COUNT 6.8 10*3/uL (4.8-10.8)
[2021-01-14 06:33] LABS: CREATININE 5.54 mg/dL (0.70-1.30)
[2021-01-14 08:00] VITALS: BP 96/58
[2021-01-14 12:00] VITALS: BP 86/44
[2021-01-14] MEDS ORDERED: DOXYCYCLINE100 M3 PO (15:29)
== END 2021-01-14 16:04 | disposition home health service (06) | DRG 564 ==
LOC: ED 12:37 → 4E 13:13 → EDHOLD 13:13 → 4E 13:24
PROVIDERS: Emergency Medicine; Internal Medicine; ADMIT Internal Medicine; ATTEND Internal Medicine
PROC: 5A1D70Z Performance of Urinary Filtration, Intermittent, Less than 6 Hours Per Day (ICD-10-PCS; principal; 2021-01-13)
DX: T87.44 Infection of amputation stump, left lower extremity (principal); N18.6 End stage renal disease; L03.116 Cellulitis of left lower limb; E87.1 Hypo-osmolality and hyponatremia; E87.2 Acidosis; I50.32 Chronic diastolic (congestive) heart failure; I13.2 Hypertensive heart and chronic kidney disease with heart failure and with stage 5 chronic kidney disease, or end stage renal disease; E87.8 Other disorders of electrolyte and fluid balance, not elsewhere classified; R74.8 Abnormal levels of other serum enzymes; R79.82 Elevated C-reactive protein (CRP); E55.9 Vitamin D deficiency, unspecified; Z99.2 Dependence on renal dialysis; D64.9 Anemia, unspecified; E11.40 Type 2 diabetes mellitus with diabetic neuropathy, unspecified; E11.65 Type 2 diabetes mellitus with hyperglycemia; Y83.5 Amputation of limb(s) as the cause of abnormal reaction of the patient, or of later complication, without mention of misadventure at the time of the procedure; Z79.4 Long term (current) use of insulin; Z89.512 Acquired absence of left leg below knee; Z95.5 Presence of coronary angioplasty implant and graft; Z87.891 Personal history of nicotine dependence; Z82.49 Family history of ischemic heart disease and other diseases of the circulatory system; Z80.0 Family history of malignant neoplasm of digestive organs; Z83.3 Family history of diabetes mellitus; Z79.899 Other long term (current) drug therapy; Z79.82 Long term (current) use of aspirin; Y92.89 Other specified places as the place of occurrence of the external cause

== ENCOUNTER → 2021-01-23 | Outpatient (CLI) | payer MEDICARE, OTHER ==
[~2021-01-23] MED LIST changes: +AUGMENTIN 875875 MG PO; +DOXYCYCLINE100 M3 PO; +NEURONTIN100 MG PO; +REPAGLINIDE0.5 M1 PO; +ROBAXIN100 MG/1 M PO; +ROXICODONE5 MG PO; +ZESTRIL2.5 MG PO
== END ==
LOC: WOUNDCARE 05:30
PROVIDERS: ATTEND Nurse Practitioner
DX: T87.81 Dehiscence of amputation stump (principal); E11.51 Type 2 diabetes mellitus with diabetic peripheral angiopathy without gangrene; E11.22 Type 2 diabetes mellitus with diabetic chronic kidney disease; I13.2 Hypertensive heart and chronic kidney disease with heart failure and with stage 5 chronic kidney disease, or end stage renal disease; I50.9 Heart failure, unspecified; N18.6 End stage renal disease; Z95.5 Presence of coronary angioplasty implant and graft; Z98.890 Other specified postprocedural states; Z79.82 Long term (current) use of aspirin; Z79.899 Other long term (current) drug therapy; Z99.2 Dependence on renal dialysis; Y83.5 Amputation of limb(s) as the cause of abnormal reaction of the patient, or of later complication, without mention of misadventure at the time of the procedure; Y92.238 Other place in hospital as the place of occurrence of the external cause

== ENCOUNTER → 2021-02-06 | Outpatient (CLI) | payer MEDICARE, OTHER | LOC: WOUNDCARE 02:25 | PROVIDERS: ATTEND Nurse Practitioner Primary Care | DX: T87.81 Dehiscence of amputation stump (principal); E11.59 Type 2 diabetes mellitus with other circulatory complications; E11.22 Type 2 diabetes mellitus with diabetic chronic kidney disease; I13.2 Hypertensive heart and chronic kidney disease with heart failure and with stage 5 chronic kidney disease, or end stage renal disease; I50.9 Heart failure, unspecified; N18.6 End stage renal disease; Z89.512 Acquired absence of left leg below knee; Z87.891 Personal history of nicotine dependence; Z79.82 Long term (current) use of aspirin; Z79.84 Long term (current) use of oral hypoglycemic drugs; Z79.899 Other long term (current) drug therapy; Y83.5 Amputation of limb(s) as the cause of abnormal reaction of the patient, or of later complication, without mention of misadventure at the time of the procedure ==

== ENCOUNTER → 2021-02-13 | Outpatient (CLI) | payer MEDICARE, OTHER | LOC: WOUNDCARE 01:20 | PROVIDERS: ATTEND Nurse Practitioner Primary Care | DX: T87.81 Dehiscence of amputation stump (principal); E11.59 Type 2 diabetes mellitus with other circulatory complications; E11.22 Type 2 diabetes mellitus with diabetic chronic kidney disease; I13.2 Hypertensive heart and chronic kidney disease with heart failure and with stage 5 chronic kidney disease, or end stage renal disease; I50.9 Heart failure, unspecified; N18.6 End stage renal disease; Z89.512 Acquired absence of left leg below knee; Z87.891 Personal history of nicotine dependence; Z79.82 Long term (current) use of aspirin; Z79.84 Long term (current) use of oral hypoglycemic drugs; Y83.5 Amputation of limb(s) as the cause of abnormal reaction of the patient, or of later complication, without mention of misadventure at the time of the procedure ==

== ENCOUNTER 2021-02-15 16:17 | Emergency (ER) | payer MEDICARE, OTHER ==
[~2021-02-15] VITALS: Wt 104.3 kg
== END 2021-02-15 18:30 ==
LOC: ED
DX: I46.9 Cardiac arrest, cause unspecified (principal); E66.9 Obesity, unspecified; E11.51 Type 2 diabetes mellitus with diabetic peripheral angiopathy without gangrene; E11.40 Type 2 diabetes mellitus with diabetic neuropathy, unspecified; E11.22 Type 2 diabetes mellitus with diabetic chronic kidney disease; I13.2 Hypertensive heart and chronic kidney disease with heart failure and with stage 5 chronic kidney disease, or end stage renal disease; I50.32 Chronic diastolic (congestive) heart failure; N18.6 End stage renal disease; Z95.5 Presence of coronary angioplasty implant and graft; Z89.512 Acquired absence of left leg below knee; Z99.2 Dependence on renal dialysis; Z79.899 Other long term (current) drug therapy; Z79.2 Long term (current) use of antibiotics; Z79.82 Long term (current) use of aspirin; Z98.890 Other specified postprocedural states; Z87.891 Personal history of nicotine dependence